=== PATIENT | male | born 1940 | race African-American/Black ===

== ENCOUNTER 2022-04-04 22:42 | Inpatient (IN) | payer OTHER ==
[2022-04-04 23:01] VITALS: BMI 19.3
[2022-04-04] MEDS ORDERED: SODIUM CHLORIDE FOR INHALATION 3 ML VIAL.NEB IH ONE (23:25)
[2022-04-05 01:00] LABS: BASO % 0.7 % (0-2.0); EOS % 1.1 % (0-4.5); HEMATOCRIT 27.4 % (35.4-49); HEMOGLOBIN 9.1 GM/dL (11.7-16.9); LYMPH % 16.2 % (8-40); MCH 29.6 pg (25.7-33.7); MCHC 33.2 g/dl (32.0-35.9); MEAN CELL VOLUME 89.2 fl (80-96); MEAN PLT VOLUME 7.8 fl (7.5-11.1); MONO % 11.4 % (3.8-10.2); NEUT % 70.6 % (42.8-82.8); PLATELET COUNT 196 10^3/uL (134-434); RBC 3.07 M/mm3 (4.00-5.60); RDW 23.6 % (11.9-15.9); WHITE BLOOD COUNT 6.5 K/mm3 (4.0-10.0)
[2022-04-05 01:22] LABS: CALCIUM 8.5 mg/dL (8.5-10.1)
[2022-04-05 01:23] LABS: ALBUMIN 2.8 g/dl (3.4-5.0); BLOOD UREA NITROGEN 31.7 mg/dL (7-18)
[2022-04-05 01:26] LABS: CREATININE 4.9 mg/dL (0.55-1.3)
[2022-04-05 01:27] LABS: BILIRUBIN,TOTAL 0.4 mg/dL (0.2-1); TOT PROT 7.1 g/dl (6.4-8.2)
[2022-04-05 01:30] LABS: N-TERMINAL BNP 18994.4 pg/ml (5-450)
[2022-04-05 02:17] LABS: INR 1.15 (0.83-1.09); PROTHROMBIN TIME (PATIENT) 13.2 SEC (9.7-13.0)
[2022-04-05 02:19] LABS: ACTIVATED PTT 32.4 SECONDS (25.2-36.5)
[2022-04-05 02:50] LABS: MAGNESIUM 2.1 mg/dL (1.8-2.4)
[2022-04-05 02:54] LABS: PHOSPHOROUS 3.4 mg/dL (2.5-4.9)
[2022-04-05 02:58] LABS: ANISOCYTOSIS 2+; MACROCYTOSIS 1+; OVALOCYTE 1+
[2022-04-05 09:30] LABS: RETICULOCYTES 2.65 % (0.5-1.5)
[2022-04-05] MEDS ORDERED: FAMOTIDINE 20 MG TABLET PO PRN (10:09)
[2022-04-05] MEDS ORDERED: PATIENT'S OWN MEDICATION (NON-FORMULARY) (Dolutegravir/Rilpivirine [Juluca 50-25 Mg Tablet PO SCH (10:15)
[2022-04-05] MEDS ORDERED: ALBUTEROL SO4 2.5/IPRATROPIUM 0.5 INH SOL 3 ML VIAL.NEB. NEB ONE ×3 (13:28→19:20)
[2022-04-05] MEDS ORDERED: amLODIPine BESYLATE 10 MG TABLET (FP) ONE (13:39)
[2022-04-05] MEDS: amLODIPine BESYLATE 10 MG TABLET (FP) PO SCH (13:52)
[2022-04-05] MEDS: RILPIVIRINE HCL 25 MG TABLET PO SCH (14:04)
[2022-04-05] MEDS: DOLUTEGRAVIR SODIUM 50 MG TABLET (NON-FORMULARY) PO SCH (14:04)
[2022-04-05] MEDS: FINASTERIDE 5 MG TABLET (FP) PO SCH (14:04)
[2022-04-05] MEDS: SEVELAMER CARBONATE 800 MG TAB (FP) PO SCH ×2 (14:04→21:14)
[2022-04-05] MEDS: INSULIN SLIDING SCALE (NOVOLOG) 1 VIAL SQ SCH ×3 (14:31→21:52)
[2022-04-05] MEDS ORDERED: hydrALAZINE HCL 10 MG TABLET ONE (16:31)
[2022-04-05] MEDS: hydrALAZINE HCL 10 MG TABLET PO SCH ×2 (16:42→21:31)
[2022-04-05] MEDS: ALBUTEROL SO4 2.5/IPRATROPIUM 0.5 INH SOL 3 ML VIAL.NEB. NEB SCH (19:25)
[2022-04-05] MEDS: MELATONIN 5 MG, MELATONIN 1 MG PO SCH (21:31)
[2022-04-05] MEDS: ROSUVASTATIN CA 5 MG TABLET PO SCH (21:31)
[2022-04-05] MEDS ORDERED: MELATONIN 3 MG PO SCH (22:00)
[2022-04-06] MEDS: SODIUM CHLORIDE FOR INHALATION 3 ML VIAL.NEB IH SCH ×4 (04:30→23:56)
[2022-04-06] MEDS: LEVOTHYROXINE NA 88 MCG TABLET (FP) PO SCH (06:08)
[2022-04-06] MEDS: hydrALAZINE HCL 10 MG TABLET PO SCH ×3 (06:08→21:34)
[2022-04-06] MEDS: INSULIN SLIDING SCALE (NOVOLOG) 1 VIAL SQ SCH ×4 (06:08→21:34)
[2022-04-06 07:41] LABS: ALBUMIN 2.6 g/dl (3.4-5.0)
[2022-04-06 07:42] LABS: BLOOD UREA NITROGEN 45.6 mg/dL (7-18); PHOSPHOROUS 4.9 mg/dL (2.5-4.9)
[2022-04-06 07:43] LABS: BILIRUBIN,TOTAL 0.5 mg/dL (0.2-1); CALCIUM 8.5 mg/dL (8.5-10.1); MAGNESIUM 2.4 mg/dL (1.8-2.4); TOT PROT 6.3 g/dl (6.4-8.2)
[2022-04-06 07:45] LABS: CREATININE 6.6 mg/dL (0.55-1.3)
[2022-04-06] MEDS: ALBUTEROL SO4 2.5/IPRATROPIUM 0.5 INH SOL 3 ML VIAL.NEB. NEB SCH ×5 (08:44→19:56)
[2022-04-06] MEDS ORDERED: EPOETIN ALFA-EPBX 10,000 UNIT/ML VIAL IVPUSH ONE (09:00)
[2022-04-06] MEDS ORDERED: SODIUM CHLORIDE 250 ML IV PRN ×2 (09:00→14:43)
[2022-04-06] MEDS: ALBUMIN HUMAN 25% 12.5 GM/50 ML VIAL IV SCH ×2 (10:08→11:08)
[2022-04-06] MEDS: SEVELAMER CARBONATE 800 MG TAB (FP) PO SCH ×3 (12:57→17:31)
[2022-04-06] MEDS: FINASTERIDE 5 MG TABLET (FP) PO SCH (12:57)
[2022-04-06] MEDS: amLODIPine BESYLATE 10 MG TABLET (FP) PO SCH (12:57)
[2022-04-06] MEDS: VITAMIN B COMP W-C 1 EA TABLET (NEPHRO-VITE) PO SCH (12:57)
[2022-04-06] MEDS: RILPIVIRINE HCL 25 MG TABLET PO SCH (13:01)
[2022-04-06] MEDS: DOLUTEGRAVIR SODIUM 50 MG TABLET (NON-FORMULARY) PO SCH (15:16)
[2022-04-06] MEDS: MELATONIN 5 MG, MELATONIN 1 MG PO SCH (21:33)
[2022-04-06] MEDS: ROSUVASTATIN CA 5 MG TABLET PO SCH (21:34)
[2022-04-07] MEDS: hydrALAZINE HCL 10 MG TABLET PO SCH ×3 (06:23→21:42)
[2022-04-07] MEDS: LEVOTHYROXINE NA 88 MCG TABLET (FP) PO SCH (06:23)
[2022-04-07] MEDS: INSULIN SLIDING SCALE (NOVOLOG) 1 VIAL SQ SCH ×4 (06:29→21:43)
[2022-04-07] MEDS: ALBUTEROL SO4 2.5/IPRATROPIUM 0.5 INH SOL 3 ML VIAL.NEB. NEB SCH ×4 (07:30→20:21)
[2022-04-07 07:57] LABS: HEMATOCRIT 24.4 % (35.4-49); HEMOGLOBIN 8.2 GM/dL (11.7-16.9); MCHC 33.4 g/dl (32.0-35.9); MEAN CELL VOLUME 89.8 fl (80-96); MEAN PLT VOLUME 8.1 fl (7.5-11.1); PLATELET COUNT 196 10^3/uL (134-434); RBC 2.72 M/mm3 (4.00-5.60); RDW 23.6 % (11.9-15.9); WHITE BLOOD COUNT 6.3 K/mm3 (4.0-10.0)
[2022-04-07 08:32] LABS: CALCIUM 8.4 mg/dL (8.5-10.1)
[2022-04-07 08:33] LABS: ALBUMIN 2.6 g/dl (3.4-5.0); BLOOD UREA NITROGEN 30.6 mg/dL (7-18); MAGNESIUM 2.2 mg/dL (1.8-2.4)
[2022-04-07 08:35] LABS: PHOSPHOROUS 4.1 mg/dL (2.5-4.9)
[2022-04-07 08:37] LABS: BILIRUBIN,TOTAL 0.6 mg/dL (0.2-1); CREATININE 5.4 mg/dL (0.55-1.3); TOT PROT 6.3 g/dl (6.4-8.2)
[2022-04-07] MEDS: SEVELAMER CARBONATE 800 MG TAB (FP) PO SCH ×3 (08:57→18:46)
[2022-04-07] MEDS: DOLUTEGRAVIR SODIUM 50 MG TABLET (NON-FORMULARY) PO SCH (08:57)
[2022-04-07] MEDS: RILPIVIRINE HCL 25 MG TABLET PO SCH (08:57)
[2022-04-07] MEDS: VITAMIN B COMP W-C 1 EA TABLET (NEPHRO-VITE) PO SCH (09:00)
[2022-04-07] MEDS: FINASTERIDE 5 MG TABLET (FP) PO SCH (09:00)
[2022-04-07] MEDS: amLODIPine BESYLATE 10 MG TABLET (FP) PO SCH (09:00)
[2022-04-07] MEDS: SODIUM CHLORIDE FOR INHALATION 3 ML VIAL.NEB IH SCH ×3 (10:30→20:06)
[2022-04-07] MEDS ORDERED: PANTOPRAZOLE 40 MG TABLET PO SCH (13:00)
[2022-04-07] MEDS: PANTOPRAZOLE 40 MG TABLET PO SCH (13:27)
[2022-04-07] MEDS: MELATONIN 5 MG, MELATONIN 1 MG PO SCH (21:42)
[2022-04-07] MEDS: ROSUVASTATIN CA 5 MG TABLET PO SCH (21:43)
[2022-04-08] MEDS: hydrALAZINE HCL 10 MG TABLET PO SCH ×3 (06:09→22:08)
[2022-04-08] MEDS: LEVOTHYROXINE NA 88 MCG TABLET (FP) PO SCH (06:09)
[2022-04-08] MEDS: INSULIN SLIDING SCALE (NOVOLOG) 1 VIAL SQ SCH ×4 (06:47→22:08)
[2022-04-08] MEDS: ALBUTEROL SO4 2.5/IPRATROPIUM 0.5 INH SOL 3 ML VIAL.NEB. NEB SCH ×4 (07:30→20:49)
[2022-04-08 08:30] LABS: HEMATOCRIT 25.5 % (35.4-49); HEMOGLOBIN 8.3 GM/dL (11.7-16.9); MCH 29.7 pg (25.7-33.7); MCHC 32.3 g/dl (32.0-35.9); MEAN PLT VOLUME 8.1 fl (7.5-11.1); PLATELET COUNT 189 10^3/uL (134-434); RBC 2.78 M/mm3 (4.00-5.60); RDW 23.1 % (11.9-15.9); WHITE BLOOD COUNT 6.5 K/mm3 (4.0-10.0)
[2022-04-08] MEDS: RILPIVIRINE HCL 25 MG TABLET PO SCH (08:41)
[2022-04-08] MEDS: DOLUTEGRAVIR SODIUM 50 MG TABLET (NON-FORMULARY) PO SCH (08:41)
[2022-04-08] MEDS: SEVELAMER CARBONATE 800 MG TAB (FP) PO SCH ×3 (08:41→17:27)
[2022-04-08 08:44] LABS: ALBUMIN 2.7 g/dl (3.4-5.0); CALCIUM 8.7 mg/dL (8.5-10.1)
[2022-04-08 08:47] LABS: CREATININE 5.1 mg/dL (0.55-1.3); PHOSPHOROUS 3.5 mg/dL (2.5-4.9)
[2022-04-08 08:49] LABS: BILIRUBIN,TOTAL 0.5 mg/dL (0.2-1); TOT PROT 6.4 g/dl (6.4-8.2)
[2022-04-08 08:54] LABS: BLOOD UREA NITROGEN 27.8 mg/dL (7-18)
[2022-04-08] MEDS: VITAMIN B COMP W-C 1 EA TABLET (NEPHRO-VITE) PO SCH (09:04)
[2022-04-08] MEDS: FINASTERIDE 5 MG TABLET (FP) PO SCH (09:04)
[2022-04-08] MEDS: amLODIPine BESYLATE 10 MG TABLET (FP) PO SCH (09:04)
[2022-04-08] MEDS: SODIUM CHLORIDE FOR INHALATION 3 ML VIAL.NEB IH SCH ×2 (11:17→15:21)
[2022-04-08] MEDS: PANTOPRAZOLE 40 MG TABLET PO SCH (13:22)
[2022-04-08] MEDS ORDERED: SODIUM CHLORIDE 250 ML IV PRN (17:51)
[2022-04-08] MEDS ORDERED: EPOETIN ALFA-EPBX 10,000 UNIT/ML VIAL SQ ONE (18:00)
[2022-04-08] MEDS: MELATONIN 5 MG, MELATONIN 1 MG PO SCH (22:08)
[2022-04-08] MEDS: ROSUVASTATIN CA 5 MG TABLET PO SCH (22:52)
[2022-04-09] MEDS: hydrALAZINE HCL 10 MG TABLET PO SCH ×3 (05:55→21:29)
[2022-04-09] MEDS: INSULIN SLIDING SCALE (NOVOLOG) 1 VIAL SQ SCH ×4 (06:19→21:30)
[2022-04-09] MEDS: LEVOTHYROXINE NA 88 MCG TABLET (FP) PO SCH (06:19)
[2022-04-09] MEDS: ALBUTEROL SO4 2.5/IPRATROPIUM 0.5 INH SOL 3 ML VIAL.NEB. NEB SCH ×4 (08:03→20:10)
[2022-04-09] MEDS: DOLUTEGRAVIR SODIUM 50 MG TABLET (NON-FORMULARY) PO SCH (08:35)
[2022-04-09] MEDS: SEVELAMER CARBONATE 800 MG TAB (FP) PO SCH ×3 (08:35→16:41)
[2022-04-09] MEDS: RILPIVIRINE HCL 25 MG TABLET PO SCH (08:35)
[2022-04-09] MEDS: VITAMIN B COMP W-C 1 EA TABLET (NEPHRO-VITE) PO SCH (10:20)
[2022-04-09] MEDS: amLODIPine BESYLATE 10 MG TABLET (FP) PO SCH (10:20)
[2022-04-09] MEDS: FINASTERIDE 5 MG TABLET (FP) PO SCH (10:20)
[2022-04-09] MEDS: SODIUM CHLORIDE FOR INHALATION 3 ML VIAL.NEB IH SCH ×2 (11:58→23:59)
[2022-04-09] MEDS ORDERED: ACETAMINOPHEN 325 MG TABLET (FP) ONE (12:45)
[2022-04-09] MEDS: PANTOPRAZOLE 40 MG TABLET PO SCH (13:29)
[2022-04-09] MEDS: ACETAMINOPHEN 325 MG TABLET (FP) PO PRN ×2 (13:55→21:28)
[2022-04-09] MEDS: MELATONIN 5 MG, MELATONIN 1 MG PO SCH (21:28)
[2022-04-09] MEDS: ROSUVASTATIN CA 5 MG TABLET PO SCH (21:28)
[2022-04-10] MEDS: SODIUM CHLORIDE FOR INHALATION 3 ML VIAL.NEB IH SCH ×4 (04:52→22:50)
[2022-04-10] MEDS: LEVOTHYROXINE NA 88 MCG TABLET (FP) PO SCH (06:34)
[2022-04-10] MEDS: hydrALAZINE HCL 10 MG TABLET PO SCH ×3 (06:34→22:14)
[2022-04-10] MEDS: INSULIN SLIDING SCALE (NOVOLOG) 1 VIAL SQ SCH ×4 (06:41→22:15)
[2022-04-10] MEDS: SEVELAMER CARBONATE 800 MG TAB (FP) PO SCH ×3 (08:06→17:14)
[2022-04-10] MEDS: DOLUTEGRAVIR SODIUM 50 MG TABLET (NON-FORMULARY) PO SCH (08:06)
[2022-04-10] MEDS: RILPIVIRINE HCL 25 MG TABLET PO SCH (08:06)
[2022-04-10] MEDS: ALBUTEROL SO4 2.5/IPRATROPIUM 0.5 INH SOL 3 ML VIAL.NEB. NEB SCH ×4 (08:15→20:22)
[2022-04-10] MEDS: POLYETHYLENE GLYCOL (HEALTHYLAX) 3350 17 GM PACKET PO SCH (10:09)
[2022-04-10] MEDS: FINASTERIDE 5 MG TABLET (FP) PO SCH (10:09)
[2022-04-10] MEDS: amLODIPine BESYLATE 10 MG TABLET (FP) PO SCH (10:09)
[2022-04-10] MEDS: VITAMIN B COMP W-C 1 EA TABLET (NEPHRO-VITE) PO SCH (10:10)
[2022-04-10 10:35] LABS: BASO % 0.6 % (0-2.0); EOS % 0.8 % (0-4.5); HEMATOCRIT 28.9 % (35.4-49); HEMOGLOBIN 9.2 GM/dL (11.7-16.9); LYMPH % 14.1 % (8-40); MCH 29.6 pg (25.7-33.7); MEAN CELL VOLUME 92.5 fl (80-96); MEAN PLT VOLUME 8.2 fl (7.5-11.1); MONO % 14.2 % (3.8-10.2); NEUT % 70.3 % (42.8-82.8); PLATELET COUNT 223 10^3/uL (134-434); RBC 3.12 M/mm3 (4.00-5.60); RDW 23.7 % (11.9-15.9)
[2022-04-10 10:56] LABS: BLOOD UREA NITROGEN 39.5 mg/dL (7-18); CALCIUM 9.3 mg/dL (8.5-10.1); CREATININE 6.1 mg/dL (0.55-1.3)
[2022-04-10 10:58] LABS: BILIRUBIN,TOTAL 0.5 mg/dL (0.2-1); TOT PROT 7.2 g/dl (6.4-8.2)
[2022-04-10] MEDS: PANTOPRAZOLE 40 MG TABLET PO SCH (12:44)
[2022-04-10] MEDS: ROSUVASTATIN CA 5 MG TABLET PO SCH (22:14)
[2022-04-10] MEDS: MELATONIN 5 MG, MELATONIN 1 MG PO SCH (22:14)
[2022-04-11] MEDS: SODIUM CHLORIDE FOR INHALATION 3 ML VIAL.NEB IH SCH ×4 (05:44→23:40)
[2022-04-11] MEDS: LEVOTHYROXINE NA 88 MCG TABLET (FP) PO SCH (06:48)
[2022-04-11] MEDS: hydrALAZINE HCL 10 MG TABLET PO SCH ×3 (06:48→21:16)
[2022-04-11] MEDS: INSULIN SLIDING SCALE (NOVOLOG) 1 VIAL SQ SCH ×4 (06:50→21:17)
[2022-04-11] MEDS ORDERED: SODIUM CHLORIDE 250 ML IV PRN (08:00)
[2022-04-11] MEDS ORDERED: EPOETIN ALFA-EPBX 10,000 UNIT/ML VIAL SQ ONE (08:00)
[2022-04-11] MEDS: ALBUTEROL SO4 2.5/IPRATROPIUM 0.5 INH SOL 3 ML VIAL.NEB. NEB SCH ×4 (08:05→20:31)
[2022-04-11] MEDS: SEVELAMER CARBONATE 800 MG TAB (FP) PO SCH ×3 (09:25→17:22)
[2022-04-11] MEDS: FINASTERIDE 5 MG TABLET (FP) PO SCH (09:25)
[2022-04-11] MEDS: amLODIPine BESYLATE 10 MG TABLET (FP) PO SCH (09:25)
[2022-04-11] MEDS: VITAMIN B COMP W-C 1 EA TABLET (NEPHRO-VITE) PO SCH (09:25)
[2022-04-11 09:41] LABS: HEMATOCRIT 26.4 % (35.4-49); HEMOGLOBIN 8.6 GM/dL (11.7-16.9); MCH 29.5 pg (25.7-33.7); MCHC 32.4 g/dl (32.0-35.9); MEAN CELL VOLUME 91.2 fl (80-96); MEAN PLT VOLUME 8.6 fl (7.5-11.1); PLATELET COUNT 227 10^3/uL (134-434); RDW 23.1 % (11.9-15.9)
[2022-04-11] MEDS: RILPIVIRINE HCL 25 MG TABLET PO SCH (09:52)
[2022-04-11] MEDS: DOLUTEGRAVIR SODIUM 50 MG TABLET (NON-FORMULARY) PO SCH (09:52)
[2022-04-11] MEDS: POLYETHYLENE GLYCOL (HEALTHYLAX) 3350 17 GM PACKET PO SCH (09:53)
[2022-04-11 10:10] LABS: CALCIUM 9.1 mg/dL (8.5-10.1)
[2022-04-11 10:11] LABS: ALBUMIN 2.8 g/dl (3.4-5.0); BLOOD UREA NITROGEN 53.1 mg/dL (7-18); MAGNESIUM 2.4 mg/dL (1.8-2.4)
[2022-04-11 10:14] LABS: CREATININE 7.4 mg/dL (0.55-1.3); PHOSPHOROUS 3.5 mg/dL (2.5-4.9)
[2022-04-11 10:15] LABS: TOT PROT 6.4 g/dl (6.4-8.2)
[2022-04-11 10:16] LABS: BILIRUBIN,TOTAL 0.5 mg/dL (0.2-1)
[2022-04-11] MEDS: PANTOPRAZOLE 40 MG TABLET PO SCH (15:16)
[2022-04-11] MEDS: ACETAMINOPHEN 325 MG TABLET (FP) PO PRN (18:54)
[2022-04-11] MEDS: MELATONIN 5 MG, MELATONIN 1 MG PO SCH (21:16)
[2022-04-11] MEDS: ROSUVASTATIN CA 5 MG TABLET PO SCH (21:16)
[2022-04-12] MEDS: LEVOTHYROXINE NA 88 MCG TABLET (FP) PO SCH (06:23)
[2022-04-12] MEDS: hydrALAZINE HCL 10 MG TABLET PO SCH ×3 (06:23→21:14)
[2022-04-12] MEDS: INSULIN SLIDING SCALE (NOVOLOG) 1 VIAL SQ SCH ×4 (06:28→21:16)
[2022-04-12] MEDS: ALBUTEROL SO4 2.5/IPRATROPIUM 0.5 INH SOL 3 ML VIAL.NEB. NEB SCH ×5 (08:00→20:00)
[2022-04-12 08:31] LABS: HEMATOCRIT 26.4 % (35.4-49); HEMOGLOBIN 8.6 GM/dL (11.7-16.9); MCH 29.9 pg (25.7-33.7); MCHC 32.5 g/dl (32.0-35.9); MEAN CELL VOLUME 91.8 fl (80-96); MEAN PLT VOLUME 8.1 fl (7.5-11.1); PLATELET COUNT 217 10^3/uL (134-434); RBC 2.87 M/mm3 (4.00-5.60); RDW 23.5 % (11.9-15.9)
[2022-04-12 08:45] LABS: ALBUMIN 2.8 g/dl (3.4-5.0); BLOOD UREA NITROGEN 34.6 mg/dL (7-18); MAGNESIUM 2.3 mg/dL (1.8-2.4)
[2022-04-12 08:47] LABS: PHOSPHOROUS 3.2 mg/dL (2.5-4.9)
[2022-04-12 08:49] LABS: BILIRUBIN,TOTAL 0.4 mg/dL (0.2-1); TOT PROT 6.8 g/dl (6.4-8.2)
[2022-04-12] MEDS: RILPIVIRINE HCL 25 MG TABLET PO SCH (09:23)
[2022-04-12] MEDS: VITAMIN B COMP W-C 1 EA TABLET (NEPHRO-VITE) PO SCH (09:23)
[2022-04-12] MEDS: SEVELAMER CARBONATE 800 MG TAB (FP) PO SCH ×3 (09:23→17:14)
[2022-04-12] MEDS: amLODIPine BESYLATE 10 MG TABLET (FP) PO SCH (09:23)
[2022-04-12] MEDS: DOLUTEGRAVIR SODIUM 50 MG TABLET (NON-FORMULARY) PO SCH (09:24)
[2022-04-12] MEDS: POLYETHYLENE GLYCOL (HEALTHYLAX) 3350 17 GM PACKET PO SCH (09:24)
[2022-04-12] MEDS: SODIUM CHLORIDE FOR INHALATION 3 ML VIAL.NEB IH SCH ×4 (09:25→22:15)
[2022-04-12] MEDS: FINASTERIDE 5 MG TABLET (FP) PO SCH (09:28)
[2022-04-12] MEDS: PANTOPRAZOLE 40 MG TABLET PO SCH (12:39)
[2022-04-12] MEDS: ROSUVASTATIN CA 5 MG TABLET PO SCH (21:13)
[2022-04-12] MEDS: MELATONIN 5 MG, MELATONIN 1 MG PO SCH (21:13)
[2022-04-12] MEDS: ACETAMINOPHEN 325 MG TABLET (FP) PO PRN (21:13)
[2022-04-13] MEDS: LEVOTHYROXINE NA 88 MCG TABLET (FP) PO SCH (06:30)
[2022-04-13] MEDS: hydrALAZINE HCL 10 MG TABLET PO SCH ×3 (06:30→21:48)
[2022-04-13] MEDS: ALBUTEROL SO4 2.5/IPRATROPIUM 0.5 INH SOL 3 ML VIAL.NEB. NEB SCH ×4 (08:25→20:00)
[2022-04-13 08:56] LABS: BASO % 0.4 % (0-2.0); EOS % 1.4 % (0-4.5); HEMATOCRIT 27.9 % (35.4-49); HEMOGLOBIN 9.2 GM/dL (11.7-16.9); LYMPH % 23.7 % (8-40); MCH 30.5 pg (25.7-33.7); MEAN CELL VOLUME 92.5 fl (80-96); MEAN PLT VOLUME 7.9 fl (7.5-11.1); MONO % 14.1 % (3.8-10.2); NEUT % 60.4 % (42.8-82.8); PLATELET COUNT 223 10^3/uL (134-434); RBC 3.01 M/mm3 (4.00-5.60); RDW 24.3 % (11.9-15.9); WHITE BLOOD COUNT 6.3 K/mm3 (4.0-10.0)
[2022-04-13 09:18] LABS: CALCIUM 9.3 mg/dL (8.5-10.1)
[2022-04-13 09:19] LABS: BLOOD UREA NITROGEN 47.4 mg/dL (7-18); MAGNESIUM 2.3 mg/dL (1.8-2.4)
[2022-04-13 09:22] LABS: CREATININE 6.4 mg/dL (0.55-1.3); PHOSPHOROUS 3.6 mg/dL (2.5-4.9)
[2022-04-13 09:23] LABS: TOT PROT 7.2 g/dl (6.4-8.2)
[2022-04-13 09:24] LABS: BILIRUBIN,TOTAL 0.5 mg/dL (0.2-1)
[2022-04-13] MEDS: POLYETHYLENE GLYCOL (HEALTHYLAX) 3350 17 GM PACKET PO SCH (09:39)
[2022-04-13] MEDS: RILPIVIRINE HCL 25 MG TABLET PO SCH (09:40)
[2022-04-13] MEDS: SEVELAMER CARBONATE 800 MG TAB (FP) PO SCH ×3 (09:40→17:19)
[2022-04-13] MEDS: VITAMIN B COMP W-C 1 EA TABLET (NEPHRO-VITE) PO SCH (09:40)
[2022-04-13] MEDS: DOLUTEGRAVIR SODIUM 50 MG TABLET (NON-FORMULARY) PO SCH (09:40)
[2022-04-13] MEDS: amLODIPine BESYLATE 10 MG TABLET (FP) PO SCH (09:40)
[2022-04-13] MEDS: FINASTERIDE 5 MG TABLET (FP) PO SCH (09:40)
[2022-04-13] MEDS: ACETAMINOPHEN 325 MG TABLET (FP) PO PRN (09:53)
[2022-04-13] MEDS ORDERED: EPOETIN ALFA-EPBX 10,000 UNIT/ML VIAL SQ ONE (10:13)
[2022-04-13] MEDS ORDERED: SODIUM CHLORIDE 250 ML IV PRN (10:13)
[2022-04-13] MEDS: SODIUM CHLORIDE FOR INHALATION 3 ML VIAL.NEB IH SCH ×4 (11:54→22:15)
[2022-04-13] MEDS: INSULIN SLIDING SCALE (NOVOLOG) 1 VIAL SQ SCH ×5 (12:42→21:56)
[2022-04-13] MEDS: PANTOPRAZOLE 40 MG TABLET PO SCH (13:05)
[2022-04-13] MEDS: ROSUVASTATIN CA 5 MG TABLET PO SCH (21:48)
[2022-04-13] MEDS: MELATONIN 5 MG, MELATONIN 1 MG PO SCH (21:48)
[2022-04-14] MEDS: SODIUM CHLORIDE FOR INHALATION 3 ML VIAL.NEB IH SCH ×3 (04:15→16:39)
[2022-04-14] MEDS: hydrALAZINE HCL 10 MG TABLET PO SCH ×3 (05:58→21:02)
[2022-04-14] MEDS: LEVOTHYROXINE NA 88 MCG TABLET (FP) PO SCH (06:03)
[2022-04-14] MEDS: INSULIN SLIDING SCALE (NOVOLOG) 1 VIAL SQ SCH ×4 (06:05→21:05)
[2022-04-14 06:51] LABS: HEMATOCRIT 26.7 % (35.4-49); HEMOGLOBIN 8.6 GM/dL (11.7-16.9); MCH 29.8 pg (25.7-33.7); MCHC 32.2 g/dl (32.0-35.9); MEAN CELL VOLUME 92.6 fl (80-96); MEAN PLT VOLUME 8.3 fl (7.5-11.1); PLATELET COUNT 209 10^3/uL (134-434); RBC 2.89 M/mm3 (4.00-5.60); RDW 23.4 % (11.9-15.9); WHITE BLOOD COUNT 5.1 K/mm3 (4.0-10.0)
[2022-04-14 07:08] LABS: ALBUMIN 2.6 g/dl (3.4-5.0); BLOOD UREA NITROGEN 26.1 mg/dL (7-18)
[2022-04-14 07:10] LABS: CREATININE 4.5 mg/dL (0.55-1.3); PHOSPHOROUS 2.8 mg/dL (2.5-4.9)
[2022-04-14 07:12] LABS: BILIRUBIN,TOTAL 0.4 mg/dL (0.2-1); TOT PROT 6.4 g/dl (6.4-8.2)
[2022-04-14] MEDS: ALBUTEROL SO4 2.5/IPRATROPIUM 0.5 INH SOL 3 ML VIAL.NEB. NEB SCH ×4 (07:21→20:10)
[2022-04-14] MEDS: DOLUTEGRAVIR SODIUM 50 MG TABLET (NON-FORMULARY) PO SCH (08:47)
[2022-04-14] MEDS: RILPIVIRINE HCL 25 MG TABLET PO SCH (08:47)
[2022-04-14] MEDS: SEVELAMER CARBONATE 800 MG TAB (FP) PO SCH ×3 (08:48→16:44)
[2022-04-14] MEDS: VITAMIN B COMP W-C 1 EA TABLET (NEPHRO-VITE) PO SCH (09:40)
[2022-04-14] MEDS: FINASTERIDE 5 MG TABLET (FP) PO SCH (09:41)
[2022-04-14] MEDS: amLODIPine BESYLATE 10 MG TABLET (FP) PO SCH (09:41)
[2022-04-14] MEDS: POLYETHYLENE GLYCOL (HEALTHYLAX) 3350 17 GM PACKET PO SCH (09:41)
[2022-04-14] MEDS: ACETAMINOPHEN 325 MG TABLET (FP) PO PRN (13:06)
[2022-04-14] MEDS: PANTOPRAZOLE 40 MG TABLET PO SCH (13:06)
[2022-04-14] MEDS ORDERED: EPOETIN ALFA-EPBX 10,000 UNIT/ML VIAL SQ ONE (19:02)
[2022-04-14] MEDS ORDERED: SODIUM CHLORIDE 250 ML IV PRN (19:02)
[2022-04-14] MEDS: MELATONIN 5 MG, MELATONIN 1 MG PO SCH (21:01)
[2022-04-14] MEDS: ROSUVASTATIN CA 5 MG TABLET PO SCH (21:02)
[2022-04-15] MEDS: INSULIN SLIDING SCALE (NOVOLOG) 1 VIAL SQ SCH ×4 (06:00→21:50)
[2022-04-15] MEDS: hydrALAZINE HCL 10 MG TABLET PO SCH ×3 (06:00→21:49)
[2022-04-15] MEDS: LEVOTHYROXINE NA 88 MCG TABLET (FP) PO SCH (06:01)
[2022-04-15] MEDS: RILPIVIRINE HCL 25 MG TABLET PO SCH (07:34)
[2022-04-15] MEDS: SEVELAMER CARBONATE 800 MG TAB (FP) PO SCH ×3 (07:34→16:36)
[2022-04-15] MEDS: DOLUTEGRAVIR SODIUM 50 MG TABLET (NON-FORMULARY) PO SCH (07:34)
[2022-04-15] MEDS: ALBUTEROL SO4 2.5/IPRATROPIUM 0.5 INH SOL 3 ML VIAL.NEB. NEB SCH ×4 (08:25→20:00)
[2022-04-15 09:41] LABS: HEMATOCRIT 26.6 % (35.4-49); HEMOGLOBIN 8.6 GM/dL (11.7-16.9); MCH 29.8 pg (25.7-33.7); MCHC 32.2 g/dl (32.0-35.9); MEAN CELL VOLUME 92.5 fl (80-96); MEAN PLT VOLUME 8.2 fl (7.5-11.1); PLATELET COUNT 223 10^3/uL (134-434); RBC 2.88 M/mm3 (4.00-5.60); RDW 23.4 % (11.9-15.9); WHITE BLOOD COUNT 6.7 K/mm3 (4.0-10.0)
[2022-04-15 10:11] LABS: ALBUMIN 2.8 g/dl (3.4-5.0); CALCIUM 9.2 mg/dL (8.5-10.1); MAGNESIUM 2.5 mg/dL (1.8-2.4)
[2022-04-15 10:14] LABS: CREATININE 6.1 mg/dL (0.55-1.3); PHOSPHOROUS 3.6 mg/dL (2.5-4.9)
[2022-04-15 10:15] LABS: BILIRUBIN,TOTAL 0.4 mg/dL (0.2-1); TOT PROT 6.7 g/dl (6.4-8.2)
[2022-04-15] MEDS: amLODIPine BESYLATE 10 MG TABLET (FP) PO SCH (12:03)
[2022-04-15] MEDS: POLYETHYLENE GLYCOL (HEALTHYLAX) 3350 17 GM PACKET PO SCH (12:03)
[2022-04-15] MEDS: FINASTERIDE 5 MG TABLET (FP) PO SCH (12:03)
[2022-04-15] MEDS: VITAMIN B COMP W-C 1 EA TABLET (NEPHRO-VITE) PO SCH (12:03)
[2022-04-15] MEDS: PANTOPRAZOLE 40 MG TABLET PO SCH (13:31)
[2022-04-15] MEDS: SODIUM CHLORIDE FOR INHALATION 3 ML VIAL.NEB IH SCH ×2 (15:30→22:15)
[2022-04-15] MEDS: MELATONIN 5 MG, MELATONIN 1 MG PO SCH (21:49)
[2022-04-15] MEDS: ROSUVASTATIN CA 5 MG TABLET PO SCH (21:49)
[2022-04-16] MEDS: SODIUM CHLORIDE FOR INHALATION 3 ML VIAL.NEB IH SCH ×6 (04:15→18:49)
[2022-04-16] MEDS: INSULIN SLIDING SCALE (NOVOLOG) 1 VIAL SQ SCH ×4 (06:40→21:43)
[2022-04-16] MEDS: LEVOTHYROXINE NA 88 MCG TABLET (FP) PO SCH (06:40)
[2022-04-16] MEDS: hydrALAZINE HCL 10 MG TABLET PO SCH ×3 (06:40→21:43)
[2022-04-16] MEDS: ALBUTEROL SO4 2.5/IPRATROPIUM 0.5 INH SOL 3 ML VIAL.NEB. NEB SCH ×4 (07:57→20:29)
[2022-04-16] MEDS: amLODIPine BESYLATE 10 MG TABLET (FP) PO SCH (10:13)
[2022-04-16] MEDS: SEVELAMER CARBONATE 800 MG TAB (FP) PO SCH ×3 (10:13→17:26)
[2022-04-16] MEDS: RILPIVIRINE HCL 25 MG TABLET PO SCH (10:14)
[2022-04-16] MEDS: POLYETHYLENE GLYCOL (HEALTHYLAX) 3350 17 GM PACKET PO SCH (10:14)
[2022-04-16] MEDS: DOLUTEGRAVIR SODIUM 50 MG TABLET (NON-FORMULARY) PO SCH (10:14)
[2022-04-16] MEDS: VITAMIN B COMP W-C 1 EA TABLET (NEPHRO-VITE) PO SCH (10:17)
[2022-04-16] MEDS: FINASTERIDE 5 MG TABLET (FP) PO SCH (10:19)
[2022-04-16] MEDS: PANTOPRAZOLE 40 MG TABLET PO SCH (12:34)
[2022-04-16] MEDS: ACETAMINOPHEN 325 MG TABLET (FP) PO PRN ×2 (14:48→21:50)
[2022-04-16] MEDS: ROSUVASTATIN CA 5 MG TABLET PO SCH (21:43)
[2022-04-16] MEDS: MELATONIN 5 MG, MELATONIN 1 MG PO SCH (21:43)
[2022-04-17] MEDS ORDERED: MELATONIN 5 MG TABLETS PO ONE (00:15)
[2022-04-17] MEDS: SODIUM CHLORIDE FOR INHALATION 3 ML VIAL.NEB IH SCH ×3 (00:31→16:34)
[2022-04-17] MEDS: hydrALAZINE HCL 10 MG TABLET PO SCH ×3 (06:10→21:55)
[2022-04-17] MEDS: LEVOTHYROXINE NA 88 MCG TABLET (FP) PO SCH (06:10)
[2022-04-17] MEDS: INSULIN SLIDING SCALE (NOVOLOG) 1 VIAL SQ SCH ×4 (06:13→21:58)
[2022-04-17] MEDS: DOLUTEGRAVIR SODIUM 50 MG TABLET (NON-FORMULARY) PO SCH (08:28)
[2022-04-17] MEDS: SEVELAMER CARBONATE 800 MG TAB (FP) PO SCH ×3 (08:28→16:53)
[2022-04-17] MEDS: RILPIVIRINE HCL 25 MG TABLET PO SCH (08:28)
[2022-04-17] MEDS: ALBUTEROL SO4 2.5/IPRATROPIUM 0.5 INH SOL 3 ML VIAL.NEB. NEB SCH ×4 (08:36→20:10)
[2022-04-17] MEDS: amLODIPine BESYLATE 10 MG TABLET (FP) PO SCH (09:19)
[2022-04-17] MEDS: POLYETHYLENE GLYCOL (HEALTHYLAX) 3350 17 GM PACKET PO SCH (09:19)
[2022-04-17] MEDS: VITAMIN B COMP W-C 1 EA TABLET (NEPHRO-VITE) PO SCH (09:19)
[2022-04-17] MEDS: FINASTERIDE 5 MG TABLET (FP) PO SCH (09:20)
[2022-04-17] MEDS: PANTOPRAZOLE 40 MG TABLET PO SCH (13:35)
[2022-04-17] MEDS: ACETAMINOPHEN 325 MG TABLET (FP) PO PRN (17:46)
[2022-04-17] MEDS: MELATONIN 5 MG, MELATONIN 1 MG PO SCH (21:54)
[2022-04-17] MEDS: ROSUVASTATIN CA 5 MG TABLET PO SCH (21:55)
[2022-04-18] MEDS: ACETAMINOPHEN 325 MG TABLET (FP) PO PRN ×2 (02:32→10:26)
[2022-04-18] MEDS ORDERED: MELATONIN 5 MG TABLETS PO ONE (02:54)
[2022-04-18] MEDS: hydrALAZINE HCL 10 MG TABLET PO SCH ×2 (06:33→13:06)
[2022-04-18] MEDS: LEVOTHYROXINE NA 88 MCG TABLET (FP) PO SCH (06:33)
[2022-04-18] MEDS: INSULIN SLIDING SCALE (NOVOLOG) 1 VIAL SQ SCH ×3 (06:34→18:30)
[2022-04-18] MEDS: SEVELAMER CARBONATE 800 MG TAB (FP) PO SCH ×3 (08:06→18:30)
[2022-04-18] MEDS: RILPIVIRINE HCL 25 MG TABLET PO SCH (08:06)
[2022-04-18] MEDS: DOLUTEGRAVIR SODIUM 50 MG TABLET (NON-FORMULARY) PO SCH (08:06)
[2022-04-18] MEDS: ALBUTEROL SO4 2.5/IPRATROPIUM 0.5 INH SOL 3 ML VIAL.NEB. NEB SCH ×3 (08:09→15:25)
[2022-04-18] MEDS: amLODIPine BESYLATE 10 MG TABLET (FP) PO SCH (10:00)
[2022-04-18] MEDS: VITAMIN B COMP W-C 1 EA TABLET (NEPHRO-VITE) PO SCH (10:27)
[2022-04-18] MEDS: POLYETHYLENE GLYCOL (HEALTHYLAX) 3350 17 GM PACKET PO SCH (10:27)
[2022-04-18] MEDS: FINASTERIDE 5 MG TABLET (FP) PO SCH (10:31)
[2022-04-18] MEDS ORDERED: ACETAMINOPHEN 500 MG TABLET (FP) PO ONE (12:10)
[2022-04-18] MEDS ORDERED: oxyCODONE HCL 5 MG TABLET PO ONE (12:24)
[2022-04-18] MEDS: PANTOPRAZOLE 40 MG TABLET PO SCH (13:09)
[2022-04-18 13:20] LABS: HEMATOCRIT 28.5 % (35.4-49); HEMOGLOBIN 9.1 GM/dL (11.7-16.9); MCH 29.7 pg (25.7-33.7); MCHC 32.1 g/dl (32.0-35.9); MEAN CELL VOLUME 92.5 fl (80-96); MEAN PLT VOLUME 7.9 fl (7.5-11.1); PLATELET COUNT 276 10^3/uL (134-434); RBC 3.08 M/mm3 (4.00-5.60); RDW 22.8 % (11.9-15.9); WHITE BLOOD COUNT 7.4 K/mm3 (4.0-10.0)
[2022-04-18 14:09] LABS: CALCIUM 9.5 mg/dL (8.5-10.1); CO2 25 mmol/L (21-32); GLUCOSE,RANDOM 165 mg/dL (74-106)
[2022-04-18 14:10] LABS: BLOOD UREA NITROGEN 61.1 mg/dL (7-18)
[2022-04-18 14:20] LABS: ANION GAP 11 MMOL/L (8-16); CHLORIDE 98 mmol/L (98-107); CREATININE 8.1 mg/dL (0.55-1.3); SODIUM 134 mmol/L (136-145)
[2022-04-18 15:36] VITALS: RESP 18
[2022-04-18] MEDS ORDERED: EPOETIN ALFA-EPBX 10,000 UNIT/ML VIAL SQ ONE (16:00)
[2022-04-18] MEDS ORDERED: SODIUM CHLORIDE 250 ML IV PRN (16:00)
[2022-04-18 18:52] VITALS: BP 152/68; PULSE 88
[2022-04-18 18:53] VITALS: TEMP 98.4
== END 2022-04-18 20:10 | DRG 291 ==
LOC: JER 22:42 → JERBED 04-05 03:36 → J4S 04-05 21:04
PROVIDERS: ADMIT Internal Medicine
PROC: 0BBG3ZX Excision of Left Upper Lung Lobe, Percutaneous Approach, Diagnostic (ICD-10-PCS; 2022-04-12)
PROC: 5A1D70Z Performance of Urinary Filtration, Intermittent, Less than 6 Hours Per Day (ICD-10-PCS; principal; 2022-04-18)
DX: I13.2 Hypertensive heart and chronic kidney disease with heart failure and with stage 5 chronic kidney disease, or end stage renal disease (principal); N18.6 End stage renal disease; T82.838A Hemorrhage due to vascular prosthetic devices, implants and grafts, initial encounter; J96.10 Chronic respiratory failure, unspecified whether with hypoxia or hypercapnia; B20 Human immunodeficiency virus [HIV] disease; I31.3 Pericardial effusion (noninflammatory); J90 Pleural effusion, not elsewhere classified; J44.1 Chronic obstructive pulmonary disease with (acute) exacerbation; C34.12 Malignant neoplasm of upper lobe, left bronchus or lung; Z93.0 Tracheostomy status; I50.9 Heart failure, unspecified; Y83.9 Surgical procedure, unspecified as the cause of abnormal reaction of the patient, or of later complication, without mention of misadventure at the time of the procedure; E87.70 Fluid overload, unspecified; E03.9 Hypothyroidism, unspecified; E78.5 Hyperlipidemia, unspecified; K21.9 Gastro-esophageal reflux disease without esophagitis; N40.0 Benign prostatic hyperplasia without lower urinary tract symptoms
CPT/HCPCS: 32408; 36415; 71045-TC-FY; 71046-TC-FY; 71250-TC; 74176-TC; 74220-TC-FY; 80048; 80053; 82607; 82728; 82746; 82962; 83036; 83540; 83550; 83735; 83880; 84100; 84439; 84443; 84484; 85025; 85027; 85045; 85610; 85730; 86803; 86850; 86900; 86901; 87340; 88305-TC; 88341-TC; 93005; 93010; 93306-TC; 93970-TC; 93971; 93990-TC; 94640; 97116-GP; 97161-GP; 99285-25; C9803-CS; E0186; Q5106; U0003; U0005

== ENCOUNTER 2022-07-15 13:26 | Inpatient (IN) | payer OTHER ==
[2022-07-15 15:33] LABS: BASO % 0.6 % (0-2.0); EOS % 0.4 % (0-4.5); HEMATOCRIT 34.5 % (35.4-49); HEMOGLOBIN 10.8 GM/dL (11.7-16.9); LYMPH % 15.5 % (8-40); MCH 28.3 pg (25.7-33.7); MCHC 31.1 g/dl (32.0-35.9); MEAN CELL VOLUME 90.8 fl (80-96); MEAN PLT VOLUME 8.4 fl (7.5-11.1); MONO % 11.1 % (3.8-10.2); NEUT % 72.4 % (42.8-82.8); PLATELET COUNT 392 10^3/uL (134-434); RBC 3.81 M/mm3 (4.00-5.60); RDW 18.6 % (11.9-15.9); WHITE BLOOD COUNT 11.6 K/mm3 (4.0-10.0)
[2022-07-15 15:44] LABS: INR 1.15 (0.83-1.09); PROTHROMBIN TIME (PATIENT) 13.3 SEC (9.7-13.0)
[2022-07-15 15:46] LABS: ACTIVATED PTT 33.4 SECONDS (25.2-36.5)
[2022-07-15 15:54] LABS: ALBUMIN 3.3 g/dl (3.4-5.0); CALCIUM 12.1 mg/dL (8.5-10.1)
[2022-07-15 15:55] LABS: BLOOD UREA NITROGEN 48.5 mg/dL (7-18)
[2022-07-15 15:57] LABS: CREATININE 5.8 mg/dL (0.55-1.3)
[2022-07-15 15:59] LABS: BILIRUBIN,TOTAL 0.5 mg/dL (0.2-1); TOT PROT 9.4 g/dl (6.4-8.2)
[2022-07-15 16:02] LABS: N-TERMINAL BNP 19351.1 pg/ml (5-450)
[2022-07-15 16:05] LABS: VENOUS BASE EXCESS 4.4 mmol/L (-2-2); VENOUS O2 SATURATION 57.2 % (70-80); VENOUS PCO2 56.5 mmHg (38-52); VENOUS PH 7.36 (7.310-7.410)
[2022-07-15 19:03] LABS: BLOOD UREA NITROGEN 50.9 mg/dL (7-18); CREATININE 6.1 mg/dL (0.55-1.3); MAGNESIUM 2.9 mg/dL (1.8-2.4); PHOSPHOROUS 3.7 mg/dL (2.5-4.9)
[2022-07-16] MEDS ORDERED: INSULIN SLIDING SCALE (NOVOLOG) 1 VIAL SQ SCH (07:00)
[2022-07-16] MEDS: INSULIN SLIDING SCALE (NOVOLOG) 1 VIAL SQ SCH ×4 (08:09→22:53)
[2022-07-16 09:30] LABS: CALCIUM 10.6 mg/dL (8.5-10.1)
[2022-07-16 09:31] LABS: BLOOD UREA NITROGEN 57.4 mg/dL (7-18); MAGNESIUM 2.9 mg/dL (1.8-2.4)
[2022-07-16 09:33] LABS: BILIRUBIN,TOTAL 0.7 mg/dL (0.2-1)
[2022-07-16 09:34] LABS: CREATININE 7.1 mg/dL (0.55-1.3); PHOSPHOROUS 4.1 mg/dL (2.5-4.9)
[2022-07-16 09:37] LABS: ALBUMIN 2.5 g/dl (3.4-5.0); TOT PROT 7.3 g/dl (6.4-8.2)
[2022-07-16 09:39] LABS: BASO % 0.6 % (0-2.0); EOS % 0.7 % (0-4.5); HEMATOCRIT 30.9 % (35.4-49); HEMOGLOBIN 9.6 GM/dL (11.7-16.9); MCH 28.5 pg (25.7-33.7); MCHC 31.2 g/dl (32.0-35.9); MEAN CELL VOLUME 91.6 fl (80-96); MEAN PLT VOLUME 8.5 fl (7.5-11.1); MONO % 10.9 % (3.8-10.2); NEUT % 75.8 % (42.8-82.8); PLATELET COUNT 296 10^3/uL (134-434); RBC 3.38 M/mm3 (4.00-5.60); RDW 18.5 % (11.9-15.9); WHITE BLOOD COUNT 11.6 K/mm3 (4.0-10.0)
[2022-07-16] MEDS ORDERED: PIPERACILLIN/TAZOB 3.375 GM 3.375 GM in DEXTROSE 5%-WATER - 50 ML IVPB SCH (11:15)
[2022-07-16] MEDS ORDERED: VANCOMYCIN 1 GM/200 ML PREMIX BAG (RESTRICTED TO ID ONLY) IVPB ONE ×2 (11:15)
[2022-07-16] MEDS ORDERED: VANCOMYCIN/WATER FOR INJ (PEG) 1,000 MG/200 ML BAG IVPB ONE (11:25)
[2022-07-16] MEDS ORDERED: methylPREDNISolone NA SUCC 40 MG/1 ML VIAL ONE ×3 (11:26→22:20)
[2022-07-16] MEDS ORDERED: PIPERACILLIN/TAZOB 3.375 GM 3.375 GM/50 ML BAG IVPB ONE ×2 (11:26→16:32)
[2022-07-16] MEDS: methylPREDNISolone NA SUCC 40 MG/1 ML VIAL IVPUSH SCH ×3 (11:43→22:39)
[2022-07-16] MEDS ORDERED: ALBUTEROL SO4 2.5/IPRATROPIUM 0.5 INH SOL 3 ML VIAL.NEB. NEB ONE (13:54)
[2022-07-16] MEDS: ALBUTEROL SO4 2.5/IPRATROPIUM 0.5 INH SOL 3 ML VIAL.NEB. NEB SCH ×2 (14:00→16:40)
[2022-07-16] MEDS: PIPERACILLIN/TAZOB 2.25 GM 2.25 GM in DEXTROSE 5%-WATER - 50 ML IVPB SCH (18:34)
[2022-07-16] MEDS ORDERED: PIPERACILLIN/TAZOB 2.25 GM 2.25 GM/50 ML BAG IVPB ONE (22:19)
[2022-07-17] MEDS: PIPERACILLIN/TAZOB 2.25 GM 2.25 GM in DEXTROSE 5%-WATER - 50 ML IVPB SCH ×3 (01:40→17:50)
[2022-07-17] MEDS: methylPREDNISolone NA SUCC 40 MG/1 ML VIAL IVPUSH SCH ×4 (03:26→21:54)
[2022-07-17] MEDS ORDERED: methylPREDNISolone NA SUCC 40 MG/1 ML VIAL ONE ×3 (03:29→14:59)
[2022-07-17] MEDS: INSULIN SLIDING SCALE (NOVOLOG) 1 VIAL SQ SCH ×4 (06:19→22:26)
[2022-07-17 10:00] LABS: WHITE BLOOD COUNT 12.3 K/mm3 (4.0-10.0)
[2022-07-17] MEDS ORDERED: SODIUM ZIRCONIUM CYCLOSILICATE (LOKELMA) 10 GM PACKET PO SCH (10:00)
[2022-07-17] MEDS ORDERED: PIPERACILLIN/TAZOB 2.25 GM 2.25 GM/50 ML BAG IVPB ONE (10:03)
[2022-07-17 10:12] LABS: HEMATOCRIT 33.7 % (35.4-49); HEMOGLOBIN 10.5 GM/dL (11.7-16.9); MCH 28.4 pg (25.7-33.7); MCHC 31.2 g/dl (32.0-35.9); MEAN PLT VOLUME 8.6 fl (7.5-11.1); PLATELET COUNT 451 10^3/uL (134-434); RBC 3.71 M/mm3 (4.00-5.60); RDW 18.5 % (11.9-15.9)
[2022-07-17] MEDS ORDERED: SODIUM CHLORIDE 250 ML IV PRN ×2 (10:20→17:03)
[2022-07-17 10:27] LABS: CHLORIDE 95 mmol/L (98-107); SODIUM 133 mmol/L (136-145)
[2022-07-17 10:34] LABS: ALBUMIN 2.8 g/dl (3.4-5.0); BLOOD UREA NITROGEN 80.6 mg/dL (7-18); CALCIUM 11.6 mg/dL (8.5-10.1); CO2 25 mmol/L (21-32); GLUCOSE,RANDOM 197 mg/dL (74-106)
[2022-07-17 10:37] LABS: SGOT/AST 20 U/L (15-37); SGPT/ALT 24 U/L (13-61)
[2022-07-17 10:39] LABS: BILIRUBIN,TOTAL 0.7 mg/dL (0.2-1); TOT PROT 8.3 g/dl (6.4-8.2)
[2022-07-17 10:40] LABS: ALK PHOS 160 U/L (45-117)
[2022-07-17 11:02] LABS: ANION GAP 12 MMOL/L (8-16); CREATININE 8.6 mg/dL (0.55-1.3)
[2022-07-17] MEDS ORDERED: INSULIN REGULAR HUMAN 100 UNITS/ML *VIAL IVPUSH ONE (11:56)
[2022-07-17] MEDS ORDERED: DEXTROSE 50%-WATER - 25 GM/50 ML VIAL IVPUSH ONE (11:56)
[2022-07-17] MEDS ORDERED: DEXTROSE 50%-WATER 25 GM/50 ML DISP.SYRIN ONE (12:52)
[2022-07-17] MEDS ORDERED: ALBUTEROL SO4 2.5/IPRATROPIUM 0.5 INH SOL 3 ML VIAL.NEB. NEB ONE (13:58)
[2022-07-17 15:23] LABS: ANISOCYTOSIS 0; MACROCYTOSIS 0
[2022-07-17 20:10] LABS: CREATININE 4.7 mg/dL (0.55-1.3)
[2022-07-17 20:13] LABS: BLOOD UREA NITROGEN 43.3 mg/dL (7-18); CALCIUM 9.7 mg/dL (8.5-10.1)
[2022-07-17] MEDS: ALBUTEROL SO4 2.5/IPRATROPIUM 0.5 INH SOL 3 ML VIAL.NEB. NEB SCH (21:06)
[2022-07-18] MEDS: methylPREDNISolone NA SUCC 40 MG/1 ML VIAL IVPUSH SCH ×4 (02:58→22:09)
[2022-07-18] MEDS: PIPERACILLIN/TAZOB 2.25 GM 2.25 GM in DEXTROSE 5%-WATER - 50 ML IVPB SCH ×3 (02:58→18:01)
[2022-07-18] MEDS: INSULIN SLIDING SCALE (NOVOLOG) 1 VIAL SQ SCH ×4 (06:11→22:08)
[2022-07-18] MEDS: ALBUTEROL SO4 2.5/IPRATROPIUM 0.5 INH SOL 3 ML VIAL.NEB. NEB SCH ×4 (09:16→20:16)
[2022-07-18] MEDS ORDERED: PATIENT'S OWN MEDICATION (NON-FORMULARY) (Dolutegravir/Rilpivirine [Juluca 50-25 Mg Tablet PO SCH (10:00)
[2022-07-18 11:08] LABS: BASO % 0.1 % (0-2.0); HEMATOCRIT 31.4 % (35.4-49); LYMPH % 3.6 % (8-40); MCH 28.6 pg (25.7-33.7); MCHC 31.8 g/dl (32.0-35.9); MEAN PLT VOLUME 8.4 fl (7.5-11.1); MONO % 8.4 % (3.8-10.2); NEUT % 87.9 % (42.8-82.8); PLATELET COUNT 399 10^3/uL (134-434); RBC 3.49 M/mm3 (4.00-5.60)
[2022-07-18 11:40] LABS: ALBUMIN 2.6 g/dl (3.4-5.0); CALCIUM 9.4 mg/dL (8.5-10.1); MAGNESIUM 2.2 mg/dL (1.8-2.4)
[2022-07-18 11:41] LABS: BLOOD UREA NITROGEN 25.4 mg/dL (7-18)
[2022-07-18 11:43] LABS: CREATININE 3.1 mg/dL (0.55-1.3)
[2022-07-18 11:45] LABS: BILIRUBIN,TOTAL 0.4 mg/dL (0.2-1); PHOSPHOROUS 2.6 mg/dL (2.5-4.9); TOT PROT 7.1 g/dl (6.4-8.2)
[2022-07-18 14:37] VITALS: BMI 17.7
[2022-07-18] MEDS: DOLUTEGRAVIR SODIUM 50 MG TABLET (NON-FORMULARY) PO SCH (17:50)
[2022-07-18] MEDS: RILPIVIRINE HCL 25 MG TABLET PO SCH (17:50)
[2022-07-19] MEDS: PIPERACILLIN/TAZOB 2.25 GM 2.25 GM in DEXTROSE 5%-WATER - 50 ML IVPB SCH ×2 (01:18→10:28)
[2022-07-19] MEDS: methylPREDNISolone NA SUCC 40 MG/1 ML VIAL IVPUSH SCH ×3 (02:18→14:23)
[2022-07-19] MEDS: INSULIN SLIDING SCALE (NOVOLOG) 1 VIAL SQ SCH ×4 (06:45→21:22)
[2022-07-19 07:36] LABS: HEMATOCRIT 29.5 % (35.4-49); HEMOGLOBIN 9.3 GM/dL (11.7-16.9); MCH 28.6 pg (25.7-33.7); MCHC 31.6 g/dl (32.0-35.9); MEAN CELL VOLUME 90.5 fl (80-96); MEAN PLT VOLUME 8.4 fl (7.5-11.1); PLATELET COUNT 330 10^3/uL (134-434); RBC 3.26 M/mm3 (4.00-5.60); RDW 19.2 % (11.9-15.9); WHITE BLOOD COUNT 15.5 K/mm3 (4.0-10.0)
[2022-07-19] MEDS ORDERED: ACETAMINOPHEN 1000 MG/100 ML BAG IVPB PRN (07:53)
[2022-07-19] MEDS ORDERED: ACETAMINOPHEN 325 MG TABLET (FP) PO PRN (07:53)
[2022-07-19 08:03] LABS: CALCIUM 9.6 mg/dL (8.5-10.1)
[2022-07-19 08:04] LABS: MAGNESIUM 2.5 mg/dL (1.8-2.4)
[2022-07-19 08:09] LABS: BLOOD UREA NITROGEN 55.2 mg/dL (7-18)
[2022-07-19] MEDS ORDERED: FAMOTIDINE 20 MG TABLET PO PRN (08:16)
[2022-07-19] MEDS ORDERED: DARBEPOETIN ALFA IN POLYSORBAT IJ SCH (08:45)
[2022-07-19] MEDS ORDERED: [UNRECOGNIZED DRUG - OTHER] IJ SCH (08:45)
[2022-07-19] MEDS: ALBUTEROL SO4 2.5/IPRATROPIUM 0.5 INH SOL 3 ML VIAL.NEB. NEB SCH ×4 (08:50→20:11)
[2022-07-19] MEDS ORDERED: VITAMIN B COMP W-C 1 EA TABLET (NEPHRO-VITE) PO SCH (10:00)
[2022-07-19] MEDS: RILPIVIRINE HCL 25 MG TABLET PO SCH (10:28)
[2022-07-19] MEDS: VITAMIN B COMP W-C 1 EA TABLET (NEPHRO-VITE) PO SCH (10:28)
[2022-07-19] MEDS: DOLUTEGRAVIR SODIUM 50 MG TABLET (NON-FORMULARY) PO SCH (10:28)
[2022-07-19] MEDS: guaiFENesin/D-METHORPHAN HB 10 ML UNIT-DOSE CUPS PO SCH ×4 (10:29→21:23)
[2022-07-19] MEDS: FINASTERIDE 5 MG TABLET (FP) PO SCH (10:29)
[2022-07-19] MEDS ORDERED: SODIUM CHLORIDE 250 ML IV PRN (15:59)
[2022-07-19] MEDS: SEVELAMER CARBONATE 800 MG TAB (FP) PO SCH (17:39)
[2022-07-19] MEDS: LIDOCAINE 5% TOPICAL PATCH TP SCH (17:39)
[2022-07-19 18:12] LABS: BF WBC & OTHER NUCLEATED CELLS 144 /mm3
[2022-07-19 19:03] LABS: BODY FLUID MACROPHAGES 13 %; BODY FLUID MONOCYTE 33 %
[2022-07-19] MEDS: LIDOCAINE PATCH REMOVAL MC SCH (21:21)
[2022-07-19] MEDS: MELATONIN 5 MG, MELATONIN 1 MG PO SCH (21:22)
[2022-07-19] MEDS: traMADol HCL 50 MG TABLET PO PRN (21:24)
[2022-07-19] MEDS ORDERED: methylPREDNISolone NA SUCC 40 MG/1 ML VIAL IVPUSH SCH (22:00)
[2022-07-19] MEDS ORDERED: MELATONIN 3 MG PO SCH (22:00)
[2022-07-19] MEDS: ROSUVASTATIN CA 5 MG TABLET PO SCH (22:07)
[2022-07-20] MEDS: INSULIN SLIDING SCALE (NOVOLOG) 1 VIAL SQ SCH ×4 (06:11→22:33)
[2022-07-20] MEDS: LEVOTHYROXINE NA 88 MCG TABLET (FP) PO SCH (06:11)
[2022-07-20 07:50] LABS: HEMATOCRIT 32.4 % (35.4-49); HEMOGLOBIN 10.1 GM/dL (11.7-16.9); MCH 28.5 pg (25.7-33.7); MCHC 31.3 g/dl (32.0-35.9); MEAN CELL VOLUME 91.2 fl (80-96); MEAN PLT VOLUME 8.8 fl (7.5-11.1); PLATELET COUNT 339 10^3/uL (134-434); RBC 3.55 M/mm3 (4.00-5.60); RDW 18.6 % (11.9-15.9); WHITE BLOOD COUNT 19.2 K/mm3 (4.0-10.0)
[2022-07-20 08:15] LABS: CALCIUM 9.5 mg/dL (8.5-10.1)
[2022-07-20] MEDS: ALBUTEROL SO4 2.5/IPRATROPIUM 0.5 INH SOL 3 ML VIAL.NEB. NEB SCH ×4 (08:15→20:07)
[2022-07-20 08:16] LABS: BLOOD UREA NITROGEN 75.9 mg/dL (7-18); MAGNESIUM 2.6 mg/dL (1.8-2.4)
[2022-07-20 08:19] LABS: CREATININE 6.3 mg/dL (0.55-1.3)
[2022-07-20] MEDS: LIDOCAINE 5% TOPICAL PATCH TP SCH (11:36)
[2022-07-20] MEDS: FINASTERIDE 5 MG TABLET (FP) PO SCH (11:37)
[2022-07-20] MEDS: DOLUTEGRAVIR SODIUM 50 MG TABLET (NON-FORMULARY) PO SCH (11:37)
[2022-07-20] MEDS: RILPIVIRINE HCL 25 MG TABLET PO SCH (11:37)
[2022-07-20] MEDS: traMADol HCL 50 MG TABLET PO PRN ×2 (11:37→22:27)
[2022-07-20] MEDS: VITAMIN B COMP W-C 1 EA TABLET (NEPHRO-VITE) PO SCH (11:38)
[2022-07-20] MEDS: guaiFENesin/D-METHORPHAN HB 10 ML UNIT-DOSE CUPS PO SCH ×4 (11:38→22:26)
[2022-07-20] MEDS: methylPREDNISolone NA SUCC 40 MG/1 ML VIAL IVPUSH SCH (11:38)
[2022-07-20] MEDS: SEVELAMER CARBONATE 800 MG TAB (FP) PO SCH ×3 (11:38→18:14)
[2022-07-20] MEDS: amLODIPine BESYLATE 10 MG TABLET (FP) PO SCH (11:38)
[2022-07-20] MEDS: LIDOCAINE PATCH REMOVAL MC SCH (22:26)
[2022-07-20] MEDS: ROSUVASTATIN CA 5 MG TABLET PO SCH (22:26)
[2022-07-20] MEDS: MELATONIN 5 MG, MELATONIN 1 MG PO SCH (22:28)
[2022-07-21] MEDS: LEVOTHYROXINE NA 88 MCG TABLET (FP) PO SCH (06:05)
[2022-07-21] MEDS: INSULIN SLIDING SCALE (NOVOLOG) 1 VIAL SQ SCH ×4 (06:10→21:47)
[2022-07-21 07:56] LABS: HEMOGLOBIN 11.6 GM/dL (11.7-16.9); MCH 29.4 pg (25.7-33.7); MCHC 32.2 g/dl (32.0-35.9); MEAN CELL VOLUME 91.5 fl (80-96); MEAN PLT VOLUME 8.3 fl (7.5-11.1); PLATELET COUNT 350 10^3/uL (134-434); RBC 3.93 M/mm3 (4.00-5.60); RDW 19.1 % (11.9-15.9); WHITE BLOOD COUNT 16.4 K/mm3 (4.0-10.0)
[2022-07-21] MEDS: ALBUTEROL SO4 2.5/IPRATROPIUM 0.5 INH SOL 3 ML VIAL.NEB. NEB SCH ×4 (08:14→20:30)
[2022-07-21 08:23] LABS: BLOOD UREA NITROGEN 56.1 mg/dL (7-18); CALCIUM 9.6 mg/dL (8.5-10.1); MAGNESIUM 2.6 mg/dL (1.8-2.4)
[2022-07-21 08:26] LABS: CREATININE 5.1 mg/dL (0.55-1.3)
[2022-07-21] MEDS: SEVELAMER CARBONATE 800 MG TAB (FP) PO SCH ×3 (10:45→17:09)
[2022-07-21] MEDS: methylPREDNISolone NA SUCC 40 MG/1 ML VIAL IVPUSH SCH (10:46)
[2022-07-21] MEDS: FINASTERIDE 5 MG TABLET (FP) PO SCH (10:46)
[2022-07-21] MEDS: amLODIPine BESYLATE 10 MG TABLET (FP) PO SCH (10:46)
[2022-07-21] MEDS: LIDOCAINE 5% TOPICAL PATCH TP SCH (10:47)
[2022-07-21] MEDS: VITAMIN B COMP W-C 1 EA TABLET (NEPHRO-VITE) PO SCH (10:47)
[2022-07-21] MEDS: DOLUTEGRAVIR SODIUM 50 MG TABLET (NON-FORMULARY) PO SCH (10:48)
[2022-07-21] MEDS: RILPIVIRINE HCL 25 MG TABLET PO SCH (10:48)
[2022-07-21] MEDS: guaiFENesin/D-METHORPHAN HB 10 ML UNIT-DOSE CUPS PO SCH ×4 (10:49→21:48)
[2022-07-21] MEDS ORDERED: SODIUM CHLORIDE 250 ML IV PRN (15:18)
[2022-07-21 16:08] LABS: BODY FLUID ALBUMIN 2.4 g/dL (Not Estab.)
[2022-07-21] MEDS ORDERED: oxyCODONE HCL 5 MG TABLET PO PRN (16:22)
[2022-07-21] MEDS ORDERED: ROSUVASTATIN CA 10 MG TABLET PO SCH (21:37)
[2022-07-21] MEDS: LIDOCAINE PATCH REMOVAL MC SCH (21:48)
[2022-07-21] MEDS: ROSUVASTATIN CA 5 MG TABLET PO SCH (21:52)
[2022-07-21] MEDS: MELATONIN 5 MG, MELATONIN 1 MG PO SCH (21:52)
[2022-07-22] MEDS: LEVOTHYROXINE NA 88 MCG TABLET (FP) PO SCH (06:36)
[2022-07-22] MEDS: INSULIN SLIDING SCALE (NOVOLOG) 1 VIAL SQ SCH ×4 (06:37→21:33)
[2022-07-22] MEDS: ALBUTEROL SO4 2.5/IPRATROPIUM 0.5 INH SOL 3 ML VIAL.NEB. NEB SCH ×3 (08:40→20:35)
[2022-07-22 08:53] LABS: HEMATOCRIT 31.6 % (35.4-49); HEMOGLOBIN 9.9 GM/dL (11.7-16.9); MCH 28.5 pg (25.7-33.7); MCHC 31.4 g/dl (32.0-35.9); MEAN CELL VOLUME 90.6 fl (80-96); MEAN PLT VOLUME 8.4 fl (7.5-11.1); PLATELET COUNT 319 10^3/uL (134-434); RBC 3.48 M/mm3 (4.00-5.60); WHITE BLOOD COUNT 18.4 K/mm3 (4.0-10.0)
[2022-07-22] MEDS ORDERED: EPOETIN ALFA-EPBX 4,000 UNIT/ML VIAL IVPUSH ONE (09:00)
[2022-07-22 09:02] LABS: INR 1.04 (0.83-1.09)
[2022-07-22 09:05] LABS: ACTIVATED PTT 29.6 SECONDS (25.2-36.5)
[2022-07-22 09:14] LABS: ALBUMIN 2.2 g/dl (3.4-5.0); CALCIUM 9.2 mg/dL (8.5-10.1); MAGNESIUM 2.6 mg/dL (1.8-2.4)
[2022-07-22 09:17] LABS: CREATININE 6.9 mg/dL (0.55-1.3)
[2022-07-22 09:19] LABS: BILIRUBIN,TOTAL 0.5 mg/dL (0.2-1); TOT PROT 5.8 g/dl (6.4-8.2)
[2022-07-22] MEDS: SEVELAMER CARBONATE 800 MG TAB (FP) PO SCH ×3 (09:31→17:11)
[2022-07-22] MEDS: LIDOCAINE 5% TOPICAL PATCH TP SCH (09:32)
[2022-07-22 09:33] LABS: BLOOD UREA NITROGEN 92.7 mg/dL (7-18)
[2022-07-22] MEDS: guaiFENesin/D-METHORPHAN HB 10 ML UNIT-DOSE CUPS PO SCH ×4 (10:02→21:33)
[2022-07-22] MEDS: RILPIVIRINE HCL 25 MG TABLET PO SCH (11:45)
[2022-07-22] MEDS: methylPREDNISolone NA SUCC 40 MG/1 ML VIAL IVPUSH SCH (11:45)
[2022-07-22] MEDS: DOLUTEGRAVIR SODIUM 50 MG TABLET (NON-FORMULARY) PO SCH (11:46)
[2022-07-22] MEDS: amLODIPine BESYLATE 10 MG TABLET (FP) PO SCH (11:47)
[2022-07-22] MEDS: VITAMIN B COMP W-C 1 EA TABLET (NEPHRO-VITE) PO SCH (11:47)
[2022-07-22] MEDS: FINASTERIDE 5 MG TABLET (FP) PO SCH (11:48)
[2022-07-22] MEDS ORDERED: methylPREDNISolone NA SUCC 40 MG/1 ML VIAL IVPUSH SCH (13:55)
[2022-07-22] MEDS: DAPSONE 100 MG TABLET PO SCH (17:10)
[2022-07-22 19:44] VITALS: RESP 20
[2022-07-22] MEDS: LIDOCAINE PATCH REMOVAL MC SCH (21:32)
[2022-07-22] MEDS: MELATONIN 5 MG, MELATONIN 1 MG PO SCH (21:34)
[2022-07-22] MEDS: ROSUVASTATIN CA 5 MG TABLET PO SCH (21:41)
[2022-07-23] MEDS: INSULIN SLIDING SCALE (NOVOLOG) 1 VIAL SQ SCH ×3 (06:03→15:46)
[2022-07-23] MEDS: LEVOTHYROXINE NA 88 MCG TABLET (FP) PO SCH (06:31)
[2022-07-23] MEDS: ALBUTEROL SO4 2.5/IPRATROPIUM 0.5 INH SOL 3 ML VIAL.NEB. NEB SCH ×3 (07:55→16:01)
[2022-07-23 08:09] LABS: HEMOGLOBIN 9.6 GM/dL (11.7-16.9); MCH 29.1 pg (25.7-33.7); MCHC 32.1 g/dl (32.0-35.9); MEAN CELL VOLUME 90.7 fl (80-96); MEAN PLT VOLUME 8.5 fl (7.5-11.1); PLATELET COUNT 294 10^3/uL (134-434); WHITE BLOOD COUNT 17.9 K/mm3 (4.0-10.0)
[2022-07-23 08:30] LABS: ALBUMIN 2.2 g/dl (3.4-5.0); CALCIUM 8.7 mg/dL (8.5-10.1)
[2022-07-23 08:31] LABS: BLOOD UREA NITROGEN 69.1 mg/dL (7-18)
[2022-07-23 08:34] LABS: CREATININE 5.5 mg/dL (0.55-1.3)
[2022-07-23 08:35] LABS: BILIRUBIN,TOTAL 0.5 mg/dL (0.2-1); TOT PROT 5.8 g/dl (6.4-8.2)
[2022-07-23] MEDS: SEVELAMER CARBONATE 800 MG TAB (FP) PO SCH ×3 (09:05→16:53)
[2022-07-23] MEDS: FINASTERIDE 5 MG TABLET (FP) PO SCH (09:06)
[2022-07-23] MEDS: VITAMIN B COMP W-C 1 EA TABLET (NEPHRO-VITE) PO SCH (09:06)
[2022-07-23] MEDS: guaiFENesin/D-METHORPHAN HB 10 ML UNIT-DOSE CUPS PO SCH ×3 (09:07→17:01)
[2022-07-23] MEDS: RILPIVIRINE HCL 25 MG TABLET PO SCH (09:08)
[2022-07-23] MEDS: DOLUTEGRAVIR SODIUM 50 MG TABLET (NON-FORMULARY) PO SCH (09:08)
[2022-07-23] MEDS: DAPSONE 100 MG TABLET PO SCH (09:09)
[2022-07-23] MEDS: LIDOCAINE 5% TOPICAL PATCH TP SCH (09:09)
[2022-07-23] MEDS: amLODIPine BESYLATE 10 MG TABLET (FP) PO SCH (09:13)
[2022-07-23 13:47] VITALS: TEMP 98.3
[2022-07-23 18:03] VITALS: BP 130/69; PULSE 98
[2022-07-23] MEDS ORDERED: LIDOCAINE PATCH REMOVAL MC SCH (22:00)
[2022-07-24] MEDS ORDERED: predniSONE 20 MG TABLET (UD) PO SCH (10:00)
== END 2022-07-23 18:00 | DRG 974 ==
LOC: JER 13:26 → JERBED 19:32 → J2W 07-17 20:40
PROVIDERS: ADMIT Internal Medicine; ATTEND Internal Medicine
PROC: 5A1D70Z Performance of Urinary Filtration, Intermittent, Less than 6 Hours Per Day (ICD-10-PCS; 2022-07-17)
PROC: 0W9G3ZZ Drainage of Peritoneal Cavity, Percutaneous Approach (ICD-10-PCS; principal; 2022-07-18)
DX: J18.9 Pneumonia, unspecified organism (principal); J96.21 Acute and chronic respiratory failure with hypoxia; B20 Human immunodeficiency virus [HIV] disease; N18.6 End stage renal disease; J96.22 Acute and chronic respiratory failure with hypercapnia; J90 Pleural effusion, not elsewhere classified; C34.90 Malignant neoplasm of unspecified part of unspecified bronchus or lung; R18.8 Other ascites; I13.2 Hypertensive heart and chronic kidney disease with heart failure and with stage 5 chronic kidney disease, or end stage renal disease; I50.32 Chronic diastolic (congestive) heart failure; J44.9 Chronic obstructive pulmonary disease, unspecified; E03.9 Hypothyroidism, unspecified; K21.9 Gastro-esophageal reflux disease without esophagitis; N40.0 Benign prostatic hyperplasia without lower urinary tract symptoms; Z99.81 Dependence on supplemental oxygen; E11.22 Type 2 diabetes mellitus with diabetic chronic kidney disease; Z99.2 Dependence on renal dialysis; E78.5 Hyperlipidemia, unspecified; Z85.21 Personal history of malignant neoplasm of larynx; R13.10 Dysphagia, unspecified; I27.20 Pulmonary hypertension, unspecified; E87.5 Hyperkalemia; D63.1 Anemia in chronic kidney disease; E11.65 Type 2 diabetes mellitus with hyperglycemia; Z93.0 Tracheostomy status
CPT/HCPCS: 0241U-QW; 36415; 71045-TC-FY; 71275-TC; 76942-TC; 80048; 80053; 82042; 82150; 82803; 82945; 82962; 83036; 83615; 83735; 83880; 83986; 84100; 84157; 84478; 84484; 85025; 85027; 85379; 85610; 85730; 86359; 86360; 86803; 87040; 87070; 87075; 87102; 87116; 87205; 87206; 87210; 87340; 87536; 88108; 88305-TC; 93005; 93010; 93306-TC; 94640; 97116-GP; 97162-GP; 99285-25; G0480; Q5106; Q9967

== ENCOUNTER 2022-10-11 12:21 | Emergency (ER) | payer OTHER ==
[2022-10-11 12:55] VITALS: TEMP 98.1; BMI 17.8
[2022-10-11 14:42] VITALS: RESP 18
[2022-10-11 16:39] VITALS: BP 134/70; PULSE 78
== END 2022-10-11 16:39 ==
LOC: JER 12:21
DX: J98.09 Other diseases of bronchus, not elsewhere classified (principal)
CPT/HCPCS: 71045-TC-FY; 82962; 99283-25

== ENCOUNTER 2022-10-15 20:08 | Inpatient (IN) | payer OTHER ==
[2022-10-15] MEDS ORDERED: LACTATED RINGERS SOLUTION 1000 ML INFUS.BAG IV ONE (20:27)
[2022-10-15 21:36] LABS: VENOUS O2 SATURATION 84.1 % (70-80); VENOUS PCO2 48.7 mmHg (38-52); VENOUS PH 7.413 (7.310-7.410)
[2022-10-15 21:42] LABS: BASO % 0.4 % (0-2.0); EOS % 0.4 % (0-4.5); HEMATOCRIT 32.2 % (35.4-49); HEMOGLOBIN 10.1 GM/dL (11.7-16.9); LYMPH % 10.3 % (8-40); MCH 27.8 pg (25.7-33.7); MCHC 31.4 g/dl (32.0-35.9); MEAN CELL VOLUME 88.7 fl (80-96); MEAN PLT VOLUME 9.2 fl (7.5-11.1); MONO % 5.9 % (3.8-10.2); PLATELET COUNT 234 10^3/uL (134-434); RBC 3.63 M/mm3 (4.00-5.60); RDW 19.4 % (11.9-15.9); WHITE BLOOD COUNT 16.2 K/mm3 (4.0-10.0)
[2022-10-15 21:50] LABS: INR 1.51 (0.83-1.09); PROTHROMBIN TIME (PATIENT) 17.4 SEC (9.7-13.0)
[2022-10-15 21:53] LABS: ACTIVATED PTT 31.8 SECONDS (25.2-36.5)
[2022-10-15 22:00] LABS: CHLORIDE 101 mmol/L (98-107); SODIUM 137 mmol/L (136-145)
[2022-10-15 22:03] LABS: ALBUMIN 1.8 g/dl (3.4-5.0); ANION GAP 6 MMOL/L (8-16); CALCIUM 11.1 mg/dL (8.5-10.1); CO2 30 mmol/L (21-32)
[2022-10-15 22:04] LABS: BLOOD UREA NITROGEN 45.2 mg/dL (7-18)
[2022-10-15 22:06] LABS: CREATININE 3.5 mg/dL (0.55-1.3); SGPT/ALT 15 U/L (13-61)
[2022-10-15 22:07] LABS: SGOT/AST 46 U/L (15-37)
[2022-10-15 22:08] LABS: BILIRUBIN,TOTAL 0.5 mg/dL (0.2-1); TOT PROT 5.9 g/dl (6.4-8.2)
[2022-10-15 22:22] LABS: ALK PHOS 143 U/L (45-117); N-TERMINAL BNP 20830.8 pg/ml (5-450)
[2022-10-15 22:24] LABS: GLUCOSE,RANDOM 39 mg/dL (74-106)
[2022-10-15] MEDS ORDERED: DEXTROSE 50%-WATER 25 GM/50 ML DISP.SYRIN ONE (22:28)
[2022-10-15] MEDS ORDERED: DEXTROSE 50%-WATER - 25 GM/50 ML VIAL IVPUSH ONE (22:31)
[2022-10-15 23:15] LABS: CALCIUM 10.8 mg/dL (8.5-10.1)
[2022-10-15] MEDS ORDERED: CEFTRIAXONE 1 GM in DEXTROSE 5%-WATER - 100 ML IVPB ONE (23:17)
[2022-10-15] MEDS ORDERED: AZITHROMYCIN IVPB 500 MG in DEXTROSE 5%-WATER - 250 ML IVPB ONE (23:17)
[2022-10-15 23:19] LABS: CREATININE 3.4 mg/dL (0.55-1.3)
[2022-10-16] MEDS: HEPARIN NA (PORCINE) 5,000 UNITS/ML 1ML VIAL SQ SCH ×3 (03:01→21:33)
[2022-10-16] MEDS ORDERED: AZITHROMYCIN IVPB 500 MG/250 ML BAG IVPB ONE (03:35)
[2022-10-16] MEDS ORDERED: CEFTRIAXONE 1 GM in DEXTROSE 5%-WATER - 50 ML IVPB ONE (03:36)
[2022-10-16] MEDS: hydrALAZINE HCL 10 MG TABLET PO SCH ×3 (05:35→21:33)
[2022-10-16] MEDS: INSULIN SLIDING SCALE (NOVOLOG) 1 VIAL SQ SCH ×4 (06:02→21:34)
[2022-10-16] MEDS: LEVOTHYROXINE NA 88 MCG TABLET (FP) PO SCH (06:02)
[2022-10-16] MEDS ORDERED: INSULIN SLIDING SCALE (NOVOLOG) 1 VIAL SQ SCH (07:00)
[2022-10-16] MEDS: SEVELAMER CARBONATE 800 MG TAB (FP) PO SCH ×3 (08:28→17:07)
[2022-10-16 09:00] LABS: HEMATOCRIT 30.2 % (35.4-49); HEMOGLOBIN 9.3 GM/dL (11.7-16.9); MCH 27.5 pg (25.7-33.7); MCHC 30.8 g/dl (32.0-35.9); MEAN CELL VOLUME 89.3 fl (80-96); MEAN PLT VOLUME 9.2 fl (7.5-11.1); PLATELET COUNT 208 10^3/uL (134-434); RBC 3.39 M/mm3 (4.00-5.60); WHITE BLOOD COUNT 17.6 K/mm3 (4.0-10.0)
[2022-10-16] MEDS: CEFTRIAXONE 1 GM in DEXTROSE 5%-WATER - 50 ML IVPB SCH (09:08)
[2022-10-16 09:09] LABS: CALCIUM 11.7 mg/dL (8.5-10.1)
[2022-10-16 09:10] LABS: BLOOD UREA NITROGEN 48.4 mg/dL (7-18); MAGNESIUM 2.7 mg/dL (1.8-2.4)
[2022-10-16 09:13] LABS: CREATININE 3.6 mg/dL (0.55-1.3)
[2022-10-16] MEDS ORDERED: PATIENT'S OWN MEDICATION (NON-FORMULARY) (Dolutegravir/Rilpivirine [Juluca 50-25 Mg Tablet PO SCH (10:00)
[2022-10-16] MEDS: FINASTERIDE 5 MG TABLET (FP) PO SCH (10:17)
[2022-10-16] MEDS: amLODIPine BESYLATE 10 MG TABLET (FP) PO SCH (10:17)
[2022-10-16] MEDS: AZITHROMYCIN IVPB 500 MG/250 ML BAG IVPB SCH (10:23)
[2022-10-16] MEDS: methylPREDNISolone NA SUCC 40 MG/1 ML VIAL IVPUSH SCH (17:12)
[2022-10-16] MEDS: ROSUVASTATIN CA 5 MG TABLET PO SCH (21:33)
[2022-10-17] MEDS: methylPREDNISolone NA SUCC 40 MG/1 ML VIAL IVPUSH SCH ×2 (01:07→13:24)
[2022-10-17] MEDS: INSULIN SLIDING SCALE (NOVOLOG) 1 VIAL SQ SCH ×4 (06:13→22:33)
[2022-10-17] MEDS: LEVOTHYROXINE NA 88 MCG TABLET (FP) PO SCH (06:17)
[2022-10-17] MEDS: hydrALAZINE HCL 10 MG TABLET PO SCH ×3 (06:17→22:33)
[2022-10-17] MEDS ORDERED: SODIUM CHLORIDE 250 ML IV PRN (08:35)
[2022-10-17] MEDS: RILPIVIRINE HCL 25 MG TABLET PO SCH (08:57)
[2022-10-17] MEDS: SEVELAMER CARBONATE 800 MG TAB (FP) PO SCH ×2 (08:57→13:29)
[2022-10-17] MEDS: DOLUTEGRAVIR SODIUM 50 MG TABLET (NON-FORMULARY) PO SCH (08:58)
[2022-10-17 09:04] LABS: HEMATOCRIT 31.2 % (35.4-49); HEMOGLOBIN 9.7 GM/dL (11.7-16.9); MCH 26.9 pg (25.7-33.7); MCHC 31.1 g/dl (32.0-35.9); MEAN CELL VOLUME 86.4 fl (80-96); MEAN PLT VOLUME 9.1 fl (7.5-11.1); PLATELET COUNT 231 10^3/uL (134-434); RBC 3.61 M/mm3 (4.00-5.60); RDW 19.9 % (11.9-15.9); WHITE BLOOD COUNT 15.1 K/mm3 (4.0-10.0)
[2022-10-17 09:19] LABS: ALBUMIN 1.9 g/dl (3.4-5.0); CALCIUM 12.2 mg/dL (8.5-10.1)
[2022-10-17 09:20] LABS: BLOOD UREA NITROGEN 59.4 mg/dL (7-18); MAGNESIUM 2.8 mg/dL (1.8-2.4)
[2022-10-17 09:22] LABS: CREATININE 4.2 mg/dL (0.55-1.3)
[2022-10-17 09:23] LABS: PHOSPHOROUS 6.9 mg/dL (2.5-4.9)
[2022-10-17 09:26] LABS: BILIRUBIN,TOTAL 0.5 mg/dL (0.2-1)
[2022-10-17] MEDS ORDERED: IRON SUCROSE INJECTION 100 MG in SODIUM CHLORIDE 95 ML IVPB ONE (09:30)
[2022-10-17] MEDS ORDERED: methylPREDNISolone NA SUCC 40 MG/1 ML VIAL IVPUSH SCH (10:00)
[2022-10-17] MEDS: ALBUMIN HUMAN 25% 12.5 GM/50 ML VIAL IV SCH ×2 (10:09→12:19)
[2022-10-17] MEDS: CEFTRIAXONE 1 GM in DEXTROSE 5%-WATER - 50 ML IVPB SCH (13:24)
[2022-10-17] MEDS: HEPARIN NA (PORCINE) 5,000 UNITS/ML 1ML VIAL SQ SCH ×2 (13:25→22:33)
[2022-10-17] MEDS: FINASTERIDE 5 MG TABLET (FP) PO SCH (13:26)
[2022-10-17] MEDS: AZITHROMYCIN IVPB 500 MG/250 ML BAG IVPB SCH (13:27)
[2022-10-17] MEDS: amLODIPine BESYLATE 10 MG TABLET (FP) PO SCH (13:27)
[2022-10-17] MEDS: SEVELAMER CARBONATE 0.8 GM POWDER PACKET PO SCH (17:13)
[2022-10-17] MEDS ORDERED: INSULIN (NOVOLOG) ASPART 100 UNITS/ML 10ML VIAL ONE (22:29)
[2022-10-17] MEDS: ROSUVASTATIN CA 5 MG TABLET PO SCH (22:33)
[2022-10-18] MEDS: LEVOTHYROXINE NA 88 MCG TABLET (FP) PO SCH (07:02)
[2022-10-18] MEDS: hydrALAZINE HCL 10 MG TABLET PO SCH ×3 (07:02→21:55)
[2022-10-18] MEDS: INSULIN SLIDING SCALE (NOVOLOG) 1 VIAL SQ SCH ×4 (07:04→21:56)
[2022-10-18] MEDS: RILPIVIRINE HCL 25 MG TABLET PO SCH (08:34)
[2022-10-18] MEDS: DOLUTEGRAVIR SODIUM 50 MG TABLET (NON-FORMULARY) PO SCH (08:35)
[2022-10-18] MEDS: HEPARIN NA (PORCINE) 5,000 UNITS/ML 1ML VIAL SQ SCH ×2 (09:05→21:55)
[2022-10-18] MEDS: CEFTRIAXONE 1 GM in DEXTROSE 5%-WATER - 50 ML IVPB SCH (09:05)
[2022-10-18] MEDS: amLODIPine BESYLATE 10 MG TABLET (FP) PO SCH (09:05)
[2022-10-18] MEDS: FINASTERIDE 5 MG TABLET (FP) PO SCH (09:06)
[2022-10-18] MEDS: methylPREDNISolone NA SUCC 40 MG/1 ML VIAL IVPUSH SCH (10:07)
[2022-10-18] MEDS: SEVELAMER CARBONATE 0.8 GM POWDER PACKET PO SCH ×3 (10:08→16:30)
[2022-10-18] MEDS: AZITHROMYCIN IVPB 500 MG/250 ML BAG IVPB SCH (10:09)
[2022-10-18 10:13] LABS: HEMATOCRIT 32.3 % (35.4-49); HEMOGLOBIN 9.9 GM/dL (11.7-16.9); MCH 27.5 pg (25.7-33.7); MCHC 30.7 g/dl (32.0-35.9); MEAN CELL VOLUME 89.6 fl (80-96); MEAN PLT VOLUME 9.4 fl (7.5-11.1); PLATELET COUNT 256 10^3/uL (134-434); RBC 3.61 M/mm3 (4.00-5.60); WHITE BLOOD COUNT 15.8 K/mm3 (4.0-10.0)
[2022-10-18] MEDS ORDERED: INSULIN (NOVOLOG) ASPART 100 UNITS/ML 10ML VIAL ONE (10:51)
[2022-10-18 10:53] LABS: CALCIUM 12.3 mg/dL (8.5-10.1)
[2022-10-18 10:54] LABS: ALBUMIN 2.1 g/dl (3.4-5.0); BLOOD UREA NITROGEN 50.9 mg/dL (7-18); MAGNESIUM 2.7 mg/dL (1.8-2.4)
[2022-10-18] MEDS: guaiFENesin 200 MG/10 ML 10 ML UNIT-DOSE CUPS GT PRN ×2 (10:55→18:04)
[2022-10-18 10:56] LABS: CREATININE 3.6 mg/dL (0.55-1.3)
[2022-10-18 10:57] LABS: BILIRUBIN,TOTAL 0.5 mg/dL (0.2-1); TOT PROT 6.4 g/dl (6.4-8.2)
[2022-10-18] MEDS: ROSUVASTATIN CA 5 MG TABLET PO SCH (21:55)
[2022-10-19] MEDS: INSULIN SLIDING SCALE (NOVOLOG) 1 VIAL SQ SCH ×4 (06:57→21:21)
[2022-10-19] MEDS: hydrALAZINE HCL 10 MG TABLET PO SCH ×3 (06:57→21:21)
[2022-10-19] MEDS: LEVOTHYROXINE NA 88 MCG TABLET (FP) PO SCH (07:02)
[2022-10-19 08:52] LABS: HEMATOCRIT 32.1 % (35.4-49); HEMOGLOBIN 9.8 GM/dL (11.7-16.9); MCH 27.1 pg (25.7-33.7); MCHC 30.4 g/dl (32.0-35.9); MEAN CELL VOLUME 88.9 fl (80-96); PLATELET COUNT 234 10^3/uL (134-434); RBC 3.61 M/mm3 (4.00-5.60); RDW 19.5 % (11.9-15.9); WHITE BLOOD COUNT 15.7 K/mm3 (4.0-10.0)
[2022-10-19 09:06] LABS: CALCIUM 12.5 mg/dL (8.5-10.1)
[2022-10-19 09:10] LABS: PHOSPHOROUS 6.3 mg/dL (2.5-4.9)
[2022-10-19] MEDS ORDERED: cefTRIAXone SODIUM 1 GM VIAL ONE (09:11)
[2022-10-19] MEDS: methylPREDNISolone NA SUCC 40 MG/1 ML VIAL IVPUSH SCH (09:14)
[2022-10-19] MEDS: HEPARIN NA (PORCINE) 5,000 UNITS/ML 1ML VIAL SQ SCH ×2 (09:14→21:22)
[2022-10-19] MEDS: DOLUTEGRAVIR SODIUM 50 MG TABLET (NON-FORMULARY) PO SCH (09:15)
[2022-10-19] MEDS: amLODIPine BESYLATE 10 MG TABLET (FP) PO SCH (09:15)
[2022-10-19] MEDS: FINASTERIDE 5 MG TABLET (FP) PO SCH (09:15)
[2022-10-19] MEDS: SEVELAMER CARBONATE 0.8 GM POWDER PACKET PO SCH ×3 (09:16→17:03)
[2022-10-19] MEDS: RILPIVIRINE HCL 25 MG TABLET PO SCH (09:16)
[2022-10-19] MEDS ORDERED: SODIUM CHLORIDE 250 ML IV PRN (10:15)
[2022-10-19] MEDS: CEFTRIAXONE 1 GM in DEXTROSE 5%-WATER - 50 ML IVPB SCH ×2 (12:30→14:23)
[2022-10-19] MEDS: guaiFENesin 200 MG/10 ML 10 ML UNIT-DOSE CUPS GT PRN (14:22)
[2022-10-19] MEDS ORDERED: INSULIN (NOVOLOG) ASPART 100 UNITS/ML 10ML VIAL ONE ×2 (16:32→21:12)
[2022-10-19] MEDS: ROSUVASTATIN CA 5 MG TABLET PO SCH (21:21)
[2022-10-20] MEDS: hydrALAZINE HCL 10 MG TABLET PO SCH ×3 (06:09→22:29)
[2022-10-20] MEDS: guaiFENesin 200 MG/10 ML 10 ML UNIT-DOSE CUPS GT PRN (06:10)
[2022-10-20] MEDS: INSULIN SLIDING SCALE (NOVOLOG) 1 VIAL SQ SCH ×3 (06:56→16:07)
[2022-10-20] MEDS: LEVOTHYROXINE NA 88 MCG TABLET (FP) PO SCH (06:57)
[2022-10-20] MEDS: SEVELAMER CARBONATE 0.8 GM POWDER PACKET PO SCH ×3 (07:54→17:05)
[2022-10-20] MEDS: RILPIVIRINE HCL 25 MG TABLET PO SCH (07:55)
[2022-10-20] MEDS: DOLUTEGRAVIR SODIUM 50 MG TABLET (NON-FORMULARY) PO SCH (07:55)
[2022-10-20 08:17] LABS: HEMATOCRIT 30.5 % (35.4-49); HEMOGLOBIN 9.2 GM/dL (11.7-16.9); MCH 26.9 pg (25.7-33.7); MCHC 30.3 g/dl (32.0-35.9); MEAN CELL VOLUME 88.7 fl (80-96); MEAN PLT VOLUME 9.2 fl (7.5-11.1); PLATELET COUNT 228 10^3/uL (134-434); RBC 3.43 M/mm3 (4.00-5.60); RDW 19.5 % (11.9-15.9); WHITE BLOOD COUNT 18.4 K/mm3 (4.0-10.0)
[2022-10-20 08:35] LABS: BLOOD UREA NITROGEN 62.4 mg/dL (7-18)
[2022-10-20 08:37] LABS: CALCIUM 11.4 mg/dL (8.5-10.1); MAGNESIUM 2.7 mg/dL (1.8-2.4)
[2022-10-20 08:38] LABS: CREATININE 3.7 mg/dL (0.55-1.3)
[2022-10-20] MEDS: methylPREDNISolone NA SUCC 40 MG/1 ML VIAL IVPUSH SCH (09:03)
[2022-10-20] MEDS: HEPARIN NA (PORCINE) 5,000 UNITS/ML 1ML VIAL SQ SCH ×2 (09:03→22:29)
[2022-10-20] MEDS: amLODIPine BESYLATE 10 MG TABLET (FP) PO SCH (09:04)
[2022-10-20] MEDS: FINASTERIDE 5 MG TABLET (FP) PO SCH (09:04)
[2022-10-20] MEDS: CEFTRIAXONE 1 GM in DEXTROSE 5%-WATER - 50 ML IVPB SCH (09:04)
[2022-10-20] MEDS ORDERED: INSULIN (NOVOLOG) ASPART 100 UNITS/ML 10ML VIAL ONE ×2 (10:52→22:19)
[2022-10-20] MEDS ORDERED: SODIUM CHLORIDE 250 ML IV PRN (14:57)
[2022-10-20] MEDS ORDERED: ALBUMIN HUMAN 25% 12.5 GM/50 ML VIAL IV SCH (15:00)
[2022-10-20 21:45] VITALS: BMI 20.8
[2022-10-20] MEDS: VITAMIN B COMP W-C 1 EA TABLET (NEPHRO-VITE) PO SCH (22:29)
[2022-10-20] MEDS: ROSUVASTATIN CA 5 MG TABLET PO SCH (22:29)
[2022-10-20] MEDS: AMINO ACIDS/PROTEIN HYDROLYS 30 ML LIQUID.PKT PO SCH (22:29)
[2022-10-21] MEDS: LEVOTHYROXINE NA 88 MCG TABLET (FP) PO SCH (06:12)
[2022-10-21] MEDS: hydrALAZINE HCL 10 MG TABLET PO SCH ×3 (06:12→21:52)
[2022-10-21] MEDS: INSULIN SLIDING SCALE (NOVOLOG) 1 VIAL SQ SCH ×4 (06:14→21:54)
[2022-10-21] MEDS: RILPIVIRINE HCL 25 MG TABLET PO SCH (08:00)
[2022-10-21 11:22] VITALS: RESP 18
[2022-10-21] MEDS: methylPREDNISolone NA SUCC 40 MG/1 ML VIAL IVPUSH SCH (14:15)
[2022-10-21] MEDS: CEFTRIAXONE 1 GM in DEXTROSE 5%-WATER - 50 ML IVPB SCH (14:15)
[2022-10-21] MEDS: VITAMIN B COMP W-C 1 EA TABLET (NEPHRO-VITE) PO SCH (14:16)
[2022-10-21] MEDS: FINASTERIDE 5 MG TABLET (FP) PO SCH (14:16)
[2022-10-21] MEDS: amLODIPine BESYLATE 10 MG TABLET (FP) PO SCH (14:16)
[2022-10-21] MEDS: HEPARIN NA (PORCINE) 5,000 UNITS/ML 1ML VIAL SQ SCH ×2 (14:17→21:52)
[2022-10-21] MEDS: AMINO ACIDS/PROTEIN HYDROLYS 30 ML LIQUID.PKT PO SCH (14:17)
[2022-10-21] MEDS: DOLUTEGRAVIR SODIUM 50 MG TABLET (NON-FORMULARY) PO SCH (14:20)
[2022-10-21] MEDS: SEVELAMER CARBONATE 0.8 GM POWDER PACKET PO SCH ×3 (14:21→16:54)
[2022-10-21 18:19] LABS: BASO % 0.1 % (0-2.0); EOS % 0.1 % (0-4.5); HEMATOCRIT 40.3 % (35.4-49); HEMOGLOBIN 12.1 GM/dL (11.7-16.9); LYMPH % 4.5 % (8-40); MCH 26.4 pg (25.7-33.7); MCHC 29.9 g/dl (32.0-35.9); MEAN CELL VOLUME 88.4 fl (80-96); MONO % 1.6 % (3.8-10.2); NEUT % 93.7 % (42.8-82.8); PLATELET COUNT 272 10^3/uL (134-434); RBC 4.56 M/mm3 (4.00-5.60); WHITE BLOOD COUNT 16.8 K/mm3 (4.0-10.0)
[2022-10-21 18:41] LABS: CALCIUM 11.7 mg/dL (8.5-10.1)
[2022-10-21 18:43] LABS: ALBUMIN 2.5 g/dl (3.4-5.0)
[2022-10-21 18:46] LABS: CREATININE 2.8 mg/dL (0.55-1.3); PHOSPHOROUS 4.4 mg/dL (2.5-4.9)
[2022-10-21 18:47] LABS: TOT PROT 7.8 g/dl (6.4-8.2)
[2022-10-21 18:48] LABS: BILIRUBIN,TOTAL 0.5 mg/dL (0.2-1)
[2022-10-21 18:52] LABS: ANISOCYTOSIS 2+; MACROCYTOSIS 0; TARGET CELLS 1+
[2022-10-21 19:24] LABS: MAGNESIUM 2.6 mg/dL (1.8-2.4)
[2022-10-21] MEDS ORDERED: INSULIN (NOVOLOG) ASPART 100 UNITS/ML 10ML VIAL ONE (21:11)
[2022-10-21] MEDS: ROSUVASTATIN CA 5 MG TABLET PO SCH (21:52)
[2022-10-22] MEDS: hydrALAZINE HCL 10 MG TABLET PO SCH ×3 (06:11→22:26)
[2022-10-22] MEDS: LEVOTHYROXINE NA 88 MCG TABLET (FP) PO SCH (06:11)
[2022-10-22] MEDS: INSULIN SLIDING SCALE (NOVOLOG) 1 VIAL SQ SCH ×4 (06:13→22:38)
[2022-10-22] MEDS: AMINO ACIDS/PROTEIN HYDROLYS 30 ML LIQUID.PKT PO SCH (07:59)
[2022-10-22] MEDS: SEVELAMER CARBONATE 0.8 GM POWDER PACKET PO SCH ×3 (07:59→16:38)
[2022-10-22] MEDS: RILPIVIRINE HCL 25 MG TABLET PO SCH (07:59)
[2022-10-22] MEDS: DOLUTEGRAVIR SODIUM 50 MG TABLET (NON-FORMULARY) PO SCH (08:00)
[2022-10-22] MEDS: HEPARIN NA (PORCINE) 5,000 UNITS/ML 1ML VIAL SQ SCH ×2 (09:22→22:26)
[2022-10-22] MEDS: amLODIPine BESYLATE 10 MG TABLET (FP) PO SCH (09:23)
[2022-10-22] MEDS: VITAMIN B COMP W-C 1 EA TABLET (NEPHRO-VITE) PO SCH (09:23)
[2022-10-22] MEDS: FINASTERIDE 5 MG TABLET (FP) PO SCH (09:23)
[2022-10-22] MEDS: CEFTRIAXONE 1 GM in DEXTROSE 5%-WATER - 50 ML IVPB SCH (09:24)
[2022-10-22] MEDS: methylPREDNISolone NA SUCC 40 MG/1 ML VIAL IVPUSH SCH (09:25)
[2022-10-22 10:17] LABS: BASO % 0.1 % (0-2.0); EOS % 0.1 % (0-4.5); HEMATOCRIT 33.6 % (35.4-49); HEMOGLOBIN 9.9 GM/dL (11.7-16.9); LYMPH % 11.3 % (8-40); MCH 26.1 pg (25.7-33.7); MCHC 29.5 g/dl (32.0-35.9); MEAN CELL VOLUME 88.3 fl (80-96); MEAN PLT VOLUME 9.3 fl (7.5-11.1); MONO % 6.6 % (3.8-10.2); NEUT % 81.9 % (42.8-82.8); PLATELET COUNT 224 10^3/uL (134-434); RBC 3.81 M/mm3 (4.00-5.60); RDW 20.5 % (11.9-15.9); WHITE BLOOD COUNT 15.9 K/mm3 (4.0-10.0)
[2022-10-22 10:33] LABS: CALCIUM 11.9 mg/dL (8.5-10.1)
[2022-10-22 10:34] LABS: BLOOD UREA NITROGEN 56.9 mg/dL (7-18)
[2022-10-22 10:37] LABS: CREATININE 3.3 mg/dL (0.55-1.3)
[2022-10-22 11:01] LABS: ANISOCYTOSIS 1+; MACROCYTOSIS 0; TARGET CELLS 1+
[2022-10-22] MEDS: guaiFENesin 200 MG/10 ML 10 ML UNIT-DOSE CUPS GT PRN (18:24)
[2022-10-22] MEDS: ROSUVASTATIN CA 5 MG TABLET PO SCH (22:26)
[2022-10-23] MEDS: hydrALAZINE HCL 10 MG TABLET PO SCH ×2 (06:24→14:58)
[2022-10-23] MEDS: LEVOTHYROXINE NA 88 MCG TABLET (FP) PO SCH (06:25)
[2022-10-23] MEDS: INSULIN SLIDING SCALE (NOVOLOG) 1 VIAL SQ SCH ×3 (06:25→17:38)
[2022-10-23] MEDS: SEVELAMER CARBONATE 0.8 GM POWDER PACKET PO SCH ×3 (08:06→17:39)
[2022-10-23] MEDS: AMINO ACIDS/PROTEIN HYDROLYS 30 ML LIQUID.PKT PO SCH (08:06)
[2022-10-23] MEDS: HEPARIN NA (PORCINE) 5,000 UNITS/ML 1ML VIAL SQ SCH (11:00)
[2022-10-23] MEDS: VITAMIN B COMP W-C 1 EA TABLET (NEPHRO-VITE) PO SCH (11:00)
[2022-10-23] MEDS: amLODIPine BESYLATE 10 MG TABLET (FP) PO SCH (11:00)
[2022-10-23] MEDS: RILPIVIRINE HCL 25 MG TABLET PO SCH (11:01)
[2022-10-23] MEDS: DOLUTEGRAVIR SODIUM 50 MG TABLET (NON-FORMULARY) PO SCH (11:01)
[2022-10-23] MEDS: FINASTERIDE 5 MG TABLET (FP) PO SCH (11:01)
[2022-10-23] MEDS: methylPREDNISolone NA SUCC 40 MG/1 ML VIAL IVPUSH SCH (11:06)
[2022-10-23 15:03] VITALS: BP 134/73; TEMP 97.4
[2022-10-23 17:26] VITALS: PULSE 96
== END 2022-10-23 17:34 | DRG 974 ==
LOC: JER 20:08 → JERBED 22:39 → J6S 10-16 02:05
PROVIDERS: ADMIT Internal Medicine; ATTEND Internal Medicine
PROC: 5A1D70Z Performance of Urinary Filtration, Intermittent, Less than 6 Hours Per Day (ICD-10-PCS; principal; 2022-10-19)
DX: J18.9 Pneumonia, unspecified organism (principal); J96.21 Acute and chronic respiratory failure with hypoxia; B20 Human immunodeficiency virus [HIV] disease; N18.6 End stage renal disease; M84.452A Pathological fracture, left femur, initial encounter for fracture; C34.90 Malignant neoplasm of unspecified part of unspecified bronchus or lung; I50.32 Chronic diastolic (congestive) heart failure; J44.0 Chronic obstructive pulmonary disease with (acute) lower respiratory infection; I13.2 Hypertensive heart and chronic kidney disease with heart failure and with stage 5 chronic kidney disease, or end stage renal disease; I50.22 Chronic systolic (congestive) heart failure; C78.00 Secondary malignant neoplasm of unspecified lung; C79.51 Secondary malignant neoplasm of bone; R64 Cachexia; E11.22 Type 2 diabetes mellitus with diabetic chronic kidney disease; J44.9 Chronic obstructive pulmonary disease, unspecified; E03.9 Hypothyroidism, unspecified; Z99.2 Dependence on renal dialysis; Z93.0 Tracheostomy status; K21.9 Gastro-esophageal reflux disease without esophagitis; E78.5 Hyperlipidemia, unspecified; E83.52 Hypercalcemia; N40.0 Benign prostatic hyperplasia without lower urinary tract symptoms; C32.9 Malignant neoplasm of larynx, unspecified; Z68.20 Body mass index [BMI] 20.0-20.9, adult
CPT/HCPCS: 0241U-QW; 36415; 71045-TC-FY; 72170-TC-FY; 72192-TC; 73502-TC-LT-FY; 73552-TC-LT-FY; 80048; 80053; 82803; 82962; 83605; 83735; 83880; 84100; 84439; 84443; 84484; 85025; 85027; 85610; 85730; 86803; 86850; 86900; 86901; 87040; 87340; 93005; 93010; 93971; 99285-25; C9803-CS; J1644; J1756; U0003; U0005